=== PATIENT | male | born 1960 | race Caucasian/White ===

== ENCOUNTER 2018-03-28 18:10 | Inpatient (IN) ==
[2018-03-28 21:16] LABS: Baso # (Auto) 0.1 th/mm3 (0.0-0.2); Baso % (Auto) 1.4 % (0.0-2.0); Eos # (Auto) 0.1 th/mm3 (0.0-0.4); Hematocrit 42.8 % (39.0-51.0); Hemoglobin 14.4 gm/dL (13.0-17.0); Lymph # (Auto) 1.9 th/mm3 (1.0-4.8); Lymph % (Auto) 29.9 % (9.0-44.0); Mean Corpuscular HGB Conc 33.7 % (32.0-36.0); Mean Corpuscular Hemoglobin 33.5 pg (27.0-34.0); Mean Corpuscular Volume 99.4 fL (80.0-100.0); Mean Platelet Volume 11.8 fL (7.0-11.0); Mono # (Auto) 0.8 th/mm3 (0.0-0.9); Neut # (Auto) 3.3 th/mm3 (1.8-7.7); Neut % (Auto) 53.7 % (16.0-70.0); Platelet Count 91 th/mm3 (150-450); Red Blood Count 4.31 mil/mm3 (4.50-5.90); Red Cell Distribution Width 16.8 % (11.6-17.2); White Blood Count 6.2 th/mm3 (4.0-11.0)
[2018-03-28 21:29] LABS: Alanine Aminotransferase 51 U/L (12-78)
[2018-03-28 21:39] LABS: Alkaline Phosphatase 150 U/L (45-117); Total Protein 8.3 g/dL (6.4-8.2)
[2018-03-28 21:42] LABS: Albumin 3.5 g/dL (3.4-5.0); Anion Gap 12 meq/L (5-15); Aspartate Aminotransferase 80 U/L (15-37); Blood Urea Nitrogen 25 mg/dL (7-18); Calcium 8.5 mg/dL (8.5-10.1); Carbon Dioxide 18.5 meq/L (21.0-32.0); Chloride 107 meq/L (98-107); Glomerular Filtration Rate 41 mL/min (>89); Glucose,Random 103 mg/dL (74-106); Sodium 137 meq/L (136-145)
[2018-03-28 21:43] LABS: Potassium 4.3 meq/L (3.5-5.1)
--- NOTE | 2018-03-28 21:45 | ED ---
HPI General Chief Complaint: Psychiatric Symptoms Stated Complaint: Psych Eval Time Seen by Provider: 03/29/18 12:15 Source: patient, police and other (ortiz act report) Mode of arrival: other (police) History of Present Illness HPI Narrative: Patient is a 57-year-old male presenting to the emergency department under Ortiz act for psychiatric evaluation. Per the Ortiz act report patient has a history of bipolar disorder and schizophrenia. He has not been eating or sleeping for the last 4 days. He has been allegedly hallucinating and seeing people in his home. Patient admitted to these hallucinations. He has no physical complaints at this time. MD complaint: other Onset (ago): unknown Duration: constant History of same: Yes Relieving factors: none Exacerbating factors: none Associated psychiatric symptoms: auditory hallucinations, visual hallucinations and delusions Associated symptoms: denies other symptoms Treatments prior to arrival: none Related Data Home Medications Medication Instructions Recorded Confirmed metoprolol succinate 100 mg PO DAILY 03/28/18 03/28/18 metoprolol tartrate [Lopressor] 100 mg PO BID 03/28/18 03/28/18 aripiprazole 10 mg PO DAILY 03/29/18 03/29/18 hydroxyzine pamoate 50 mg PO HS 03/29/18 03/29/18 losartan 100 mg PO DAILY 03/29/18 03/29/18 metoprolol tartrate 50 mg PO DAILY 03/29/18 03/29/18 Allergies Allergy/AdvReac Type Severity Reaction Status Date / Time No Known Allergies Allergy Unverified 03/28/18 19:10 Review of Systems ROS: all other systems reviewed are negative [facility] Medical History Medical History Alcohol abuse (Acute) Bipolar disorder (Acute) Hypertension (Acute) Schizophrenia (Acute) Splenomegaly, congestive, chronic (Acute) Steatohepatitis, alcoholic (Acute) Thrombocytopenia (Acute) Umbilical hernia (Acute) Surgical History Surgical History History of umbilical hernia repair (Acute) Family History Family History Other Heart disease Hypertension Social History Social History Substance History: Active Abuse Second Hand Smoke Exposure: No Smoking Status: Former smoker Tobacco Type: Cigarettes How Often Do You Have a Drink Containing Alcohol: Unable to Obtain (patient is vague with the details of his alcohol consumption) Recent Travel in [facility] within the Last 8 Weeks: No Recent Out of Country Travel within the Last 8 Weeks: No Immunization History Tetanus Immunization: Unsure Hx Influenza Vaccine This Season: No Exam Narrative Exam Narrative: GENERAL: Well-developed, well-nourished, well-kept male. Presenting in no acute distress. SKIN: Focused skin assessment warm/dry. HEAD: Atraumatic. Normocephalic. EYES: Pupils equal and round. No scleral icterus. No injection or drainage. ENT: No nasal bleeding or discharge. Mucous membranes pink and moist. NECK: Trachea midline. No JVD. CARDIOVASCULAR: Regular rate and rhythm. No murmur appreciated. RESPIRATORY: No accessory muscle use. Clear to auscultation. Breath sounds equal bilaterally. GASTROINTESTINAL: Abdomen soft, non-tender, nondistended. Hepatic and splenic margins not palpable. MUSCULOSKELETAL: No obvious deformities. No clubbing. No cyanosis. No edema. NEUROLOGICAL: Awake and alert. No obvious cranial nerve deficits. Motor grossly within normal limits. Normal speech. PSYCHIATRIC: Appropriate mood and affect; insight and judgment impaired. Visual and auditory hallucinations. Course Initial Documented Vital Signs Temperature 98.6 F 03/28/18 18:21 Pulse Rate 92 H 03/28/18 18:21 Respiratory Rate 20 03/28/18 18:21 Blood Pressure 119/63 03/28/18 18:21 Pulse Oximetry 97 03/28/18 18:21 Last Documented Vital Signs Temperature 98.4 F 04/02/18 06:10 Pulse Rate 98 H 04/02/18 06:10 Respiratory Rate 18 04/02/18 06:10 Blood Pressure 121/70 04/02/18 06:10 Pulse Oximetry 97 04/02/18 06:10 Medical Decision Making RAY Attestation RAY supervised visit: Yes Attestation: I, Dr. Cox, have reviewed the advance practice practitioner's documentation and am in agreement, met with the patient face to face, made the diagnosis, and the medical decision making was done by me. *My assessment and Findings: Schizophrenia vs. bipolar disorder 57yo M was brought in under Ortiz Act for psychiatric evaluation. Labs reviewed , no leukocytosis. +Toxic granulation. H/H normal. Thrombocytopenic at 91, 000. CO2 low at 18.5. BUN/creatinine elevated at 25/1.73. Bilirubin is elevated at 3.8. AST elevated at 80. Alk phos elevated at 150. Pt said he had history of elevated liver enzymes and use to drink alcohol. Said his platelet count was low. Pt is very well appearing. He has no complaints and no abdominal tenderness on exam. I discussed these lab abnormalities with GI cooler conveyor loader Dr. Sexton and he said that this could all be related to alcohol. Recommends repeat blood work tomorrow and if there is concern, can consult GI. Said without any symptoms, abnormal labs in itself is not enough for medical admission. Pt will be follow up but can be done as outpatient. Will repeat blood work tomorrow and pt is currently clear for psych evaluation. MDM Narrative Medical decision making narrative: Patient is well-appearing 57-year-old male presenting under Ortiz act for psychiatric evaluation. Patient's vital signs are stable. Mental health screening discussed with the patient. Psychiatric screen ordered. We will repeat CBC and chemistry in the morning due to toxic granulocytes in the original CBC. Plan of care was discussed with my attending physician. Report was given oncoming physician's judicial assistant, Natalie Medical Screen Exam Complete: Yes Emergency Medical Condition: Yes Medical Records Medical records reviewed: Yes I reviewed the patient's medical records. Lab Data Result diagrams: 04/01/18 07:16 04/01/18 07:16 Lab Results 03/28/18 03/28/18 03/29/18 Range/Units 18:23 18:23 07:14 WBC 6.2 (4.0-11.0) th/mm3 RBC 4.31 L (4.50-5.90) mil/mm3 Hgb 14.4 (13.0-17.0) gm/dL Hct 42.8 (39.0-51.0) % MCV 99.4 (80.0-100.0) fL MCH 33.5 (27.0-34.0) pg MCHC 33.7 (32.0-36.0) % RDW 16.8 (11.6-17.2) % Plt Count 91 L (150-450) th/mm3 MPV 11.8 H (7.0-11.0) fL Prelim Diff (Auto) Slide review pending Neut % (Auto) 53.7 (16.0-70.0) % Lymph % (Auto) 29.9 (9.0-44.0) % [place] % (Auto) 13.0 H (0.0-8.0) % Eos % (Auto) 2.0 (0.0-4.0) % Baso % (Auto) 1.4 (0.0-2.0) % Neut # (Auto) 3.3 (1.8-7.7) th/mm3 Lymph # (Auto) 1.9 (1.0-4.8) th/mm3 [place] # (Auto) 0.8 (0.0-0.9) th/mm3 Eos # (Auto) 0.1 (0.0-0.4) th/mm3 Baso # (Auto) 0.1 (0.0-0.2) th/mm3 WBC Differential . Diff Scan Auto diff confirmed Differential Comment . Toxic Granulation 2+ H (None) Platelet Estimate Low L (Normal) Platelet Morphology Normal (Normal) Spherocytes Occ H (None) Retic Count (0.4-3.0) % Absolute Retic (20.0-150.0) mil/L Haptoglobin (30-200) mg/dL PT (9.8-11.6) sec INR Ratio Sodium 137 (136-145) meq/L Potassium 4.3 (3.5-5.1) meq/L Chloride 107 (98-107) meq/L Carbon Dioxide 18.5 L (21.0-32.0) meq/L Anion Gap 12 (5-15) meq/L BUN 25 H (7-18) mg/dL Creatinine 1.73 H (0.60-1.30) mg/dL Estimated GFR 41 L (>89) mL/min Random Glucose 103 (74-106) mg/dL Hemoglobin A1c (4.3-6.0) % Calcium 8.5 (8.5-10.1) mg/dL Iron (65-175) mcg/dL TIBC (250-450) mcg/dL % Saturation (20-50) % Ferritin (26-388) ng/mL Total Bilirubin 3.9 H (0.2-1.0) mg/dL AST 80 H (15-37) U/L ALT 51 (12-78) U/L Alkaline Phosphatase 150 H (45-117) U/L Ammonia (11-32) mcmol/L Lactate Dehydrogenase (87-241) U/L Total Protein 8.3 H (6.4-8.2) g/dL Albumin 3.5 (3.4-5.0) g/dL Triglycerides (42-150) mg/dL Cholesterol (120-200) mg/dL LDL Cholesterol, Calc (0-99) mg/dL HDL Cholesterol (40.0-60.0) mg/dL Cholesterol/HDL Ratio Ratio Lipase (73-393) U/L Tumor Marker AFP (0.5-8.0) ng/mL Vitamin B12 (193-986) pg/mL TSH 1.770 (0.358-3.740) uIU/mL Urine Color (Yellw/Straw) Urine Clarity (Clear) Urine pH (5.0-8.5) Ur Specific [place] (1.002-1.035) Urine Protein (Neg-Trace) mg/dL Urine Glucose (UA) (Negative) mg/dL Urine Ketones (Negative) mg/dL Urine Occult Blood (Negative) Urine Nitrate (Negative) Urine Bilirubin (Negative) Urine Urobilinogen (Less than 2) mg/dL Ur Leukocyte Esterase (Negative) Urine WBC (0-5) /hpf Hyaline Casts (0-3) /lpf Urine Mucus (Occasional) /lpf Micro UA Comment Ur Microscopic Review Urine Culture Comments Urine Opiates Screen Neg (Neg) Acetaminophen (10.0-30.0) mcg/mL Ur Barbiturates Screen Neg (Neg) Ur Amphetamines Screen Neg (Neg) U Benzodiazepines Scrn Neg (Neg) Urine Cocaine Screen Neg (Neg) U Cannabinoids Screen Neg (Neg) Serum Alcohol Less than 3 (0-5) mg/dL LANA Screen (Neg) Hepatitis A IgM Ab (Nonreactive) Hep Bs Antigen (Nonreactive) Hep B Core IgM Ab (Nonreactive) Hep C IgG Ab (Nonreactive) 03/29/18 03/30/18 03/30/18 Range/Units 07:14 08:01 08:01 WBC 3.4 L (4.0-11.0) th/mm3 RBC 3.70 L (4.50-5.90) mil/mm3 Hgb 12.5 L (13.0-17.0) gm/dL Hct 36.7 L (39.0-51.0) % MCV 99.0 (80.0-100.0) fL MCH 33.8 (27.0-34.0) pg MCHC 34.1 (32.0-36.0) % RDW 16.3 (11.6-17.2) % Plt Count 49 L D (150-450) th/mm3 MPV 10.9 (7.0-11.0) fL Prelim Diff (Auto) Slide review pending Neut % (Auto) 46.5 (16.0-70.0) % Lymph % (Auto) 36.9 (9.0-44.0) % [place] % (Auto) 12.1 H (0.0-8.0) % Eos % (Auto) 3.5 (0.0-4.0) % Baso % (Auto) 1.0 (0.0-2.0) % Neut # (Auto) 1.6 L (1.8-7.7) th/mm3 Lymph # (Auto) 1.3 (1.0-4.8) th/mm3 [place] # (Auto) 0.4 (0.0-0.9) th/mm3 Eos # (Auto) 0.1 (0.0-0.4) th/mm3 Baso # (Auto) 0.0 (0.0-0.2) th/mm3 WBC Differential . Diff Scan Auto diff confirmed Differential Comment . Toxic Granulation (None) Platelet Estimate (Normal) Platelet Morphology (Normal) Spherocytes (None) Retic Count (0.4-3.0) % Absolute Retic (20.0-150.0) mil/L Haptoglobin (30-200) mg/dL PT (9.8-11.6) sec INR Ratio Sodium 136 (136-145) meq/L Potassium 4.0 (3.5-5.1) meq/L Chloride 102 (98-107) meq/L Carbon Dioxide 25.1 (21.0-32.0) meq/L Anion Gap 9 (5-15) meq/L BUN 17 (7-18) mg/dL Creatinine 0.97 (0.60-1.30) mg/dL Estimated GFR 80 L (>89) mL/min Random Glucose 152 H (74-106) mg/dL Hemoglobin A1c (4.3-6.0) % Calcium 7.9 L (8.5-10.1) mg/dL Iron (65-175) mcg/dL TIBC (250-450) mcg/dL % Saturation (20-50) % Ferritin (26-388) ng/mL Total Bilirubin 2.5 H (0.2-1.0) mg/dL AST 64 H (15-37) U/L ALT 44 (12-78) U/L Alkaline Phosphatase 230 H (45-117) U/L Ammonia (11-32) mcmol/L Lactate Dehydrogenase (87-241) U/L Total Protein 6.7 D (6.4-8.2) g/dL Albumin 2.8 L D (3.4-5.0) g/dL Triglycerides 183 H (42-150) mg/dL Cholesterol 173 (120-200) mg/dL LDL Cholesterol, Calc 89 (0-99) mg/dL HDL Cholesterol 47.7 (40.0-60.0) mg/dL Cholesterol/HDL Ratio 3.62 Ratio Lipase (73-393) U/L Tumor Marker AFP (0.5-8.0) ng/mL Vitamin B12 (193-986) pg/mL TSH (0.358-3.740) uIU/mL Urine Color [place] (Yellw/Straw) Urine Clarity Hazy H (Clear) Urine pH 5.0 (5.0-8.5) Ur Specific [place] 1.024 (1.002-1.035) Urine Protein Negative (Neg-Trace) mg/dL Urine Glucose (UA) Negative (Negative) mg/dL Urine Ketones Trace (Negative) mg/dL Urine Occult Blood Negative (Negative) Urine Nitrate Negative (Negative) Urine Bilirubin Negative (Negative) Urine Urobilinogen 2.0 H (Less than 2) mg/dL Ur Leukocyte Esterase Negative (Negative) Urine WBC 2 (0-5) /hpf Hyaline Casts 26 (0-3) /lpf Urine Mucus Few H (Occasional) /lpf Micro UA Comment Culture not ind Ur Microscopic Review Not Reportable Urine Culture Comments Culture not ind Urine Opiates Screen (Neg) Acetaminophen (10.0-30.0) mcg/mL Ur Barbiturates Screen (Neg) Ur Amphetamines Screen (Neg) U Benzodiazepines Scrn (Neg) Urine Cocaine Screen (Neg) U Cannabinoids Screen (Neg) Serum Alcohol (0-5) mg/dL LANA Screen (Neg) Hepatitis A IgM Ab (Nonreactive) Hep Bs Antigen (Nonreactive) Hep B Core IgM Ab (Nonreactive) Hep C IgG Ab (Nonreactive) 03/30/18 03/31/18 03/31/18 Range/Units 08:01 06:57 06:57 WBC 3.0 L (4.0-11.0) th/mm3 RBC 3.54 L (4.50-5.90) mil/mm3 Hgb 11.9 L (13.0-17.0) gm/dL Hct 34.5 L (39.0-51.0) % MCV 97.3 (80.0-100.0) fL MCH 33.5 (27.0-34.0) pg MCHC 34.4 (32.0-36.0) % RDW 16.2 (11.6-17.2) % Plt Count 38 L (150-450) th/mm3 MPV 10.8 (7.0-11.0) fL Prelim Diff (Auto) Neut % (Auto) (16.0-70.0) % Lymph % (Auto) (9.0-44.0) % [place] % (Auto) (0.0-8.0) % Eos % (Auto) (0.0-4.0) % Baso % (Auto) (0.0-2.0) % Neut # (Auto) (1.8-7.7) th/mm3 Lymph # (Auto) (1.0-4.8) th/mm3 [place] # (Auto) (0.0-0.9) th/mm3 Eos # (Auto) (0.0-0.4) th/mm3 Baso # (Auto) (0.0-0.2) th/mm3 WBC Differential Diff Scan Differential Comment Toxic Granulation (None) Platelet Estimate (Normal) Platelet Morphology (Normal) Spherocytes (None) Retic Count (0.4-3.0) % Absolute Retic (20.0-150.0) mil/L Haptoglobin (30-200) mg/dL PT (9.8-11.6) sec INR Ratio Sodium 138 (136-145) meq/L Potassium 3.8 (3.5-5.1) meq/L Chloride 104 (98-107) meq/L Carbon Dioxide 24.5 (21.0-32.0) meq/L Anion Gap 10 (5-15) meq/L BUN 11 (7-18) mg/dL Creatinine 0.68 (0.60-1.30) mg/dL Estimated GFR Greater than 89 (>89) mL/min Random Glucose 111 H (74-106) mg/dL Hemoglobin A1c 5.2 (4.3-6.0) % Calcium 8.3 L (8.5-10.1) mg/dL Iron (65-175) mcg/dL TIBC (250-450) mcg/dL % Saturation (20-50) % Ferritin (26-388) ng/mL Total Bilirubin 2.5 H (0.2-1.0) mg/dL AST 67 H (15-37) U/L ALT 45 (12-78) U/L Alkaline Phosphatase 231 H (45-117) U/L Ammonia (11-32) mcmol/L Lactate Dehydrogenase (87-241) U/L Total Protein 6.5 (6.4-8.2) g/dL Albumin 2.7 L (3.4-5.0) g/dL Triglycerides (42-150) mg/dL Cholesterol (120-200) mg/dL LDL Cholesterol, Calc (0-99) mg/dL HDL Cholesterol (40.0-60.0) mg/dL Cholesterol/HDL Ratio Ratio Lipase (73-393) U/L Tumor Marker AFP (0.5-8.0) ng/mL Vitamin B12 (193-986) pg/mL TSH (0.358-3.740) uIU/mL Urine Color (Yellw/Straw) Urine Clarity (Clear) Urine pH (5.0-8.5) Ur Specific [place] (1.002-1.035) Urine Protein (Neg-Trace) mg/dL Urine Glucose (UA) (Negative) mg/dL Urine Ketones (Negative) mg/dL Urine Occult Blood (Negative) Urine Nitrate (Negative) Urine Bilirubin (Negative) Urine Urobilinogen (Less than 2) mg/dL Ur Leukocyte Esterase (Negative) Urine WBC (0-5) /hpf Hyaline Casts (0-3) /lpf Urine Mucus (Occasional) /lpf Micro UA Comment Ur Microscopic Review Urine Culture Comments Urine Opiates Screen (Neg) Acetaminophen (10.0-30.0) mcg/mL Ur Barbiturates Screen (Neg) Ur Amphetamines Screen (Neg) U Benzodiazepines Scrn (Neg) Urine Cocaine Screen (Neg) U Cannabinoids Screen (Neg) Serum Alcohol (0-5) mg/dL LANA Screen (Neg) Hepatitis A IgM Ab (Nonreactive) Hep Bs Antigen (Nonreactive) Hep B Core IgM Ab (Nonreactive) Hep C IgG Ab (Nonreactive) 03/31/18 03/31/18 03/31/18 Range/Units 06:57 10:20 10:20 WBC (4.0-11.0) th/mm3 RBC (4.50-5.90) mil/mm3 Hgb (13.0-17.0) gm/dL Hct (39.0-51.0) % MCV (80.0-100.0) fL MCH (27.0-34.0) pg MCHC (32.0-36.0) % RDW (11.6-17.2) % Plt Count (150-450) th/mm3 MPV (7.0-11.0) fL Prelim Diff (Auto) Neut % (Auto) (16.0-70.0) % Lymph % (Auto) (9.0-44.0) % [place] % (Auto) (0.0-8.0) % Eos % (Auto) (0.0-4.0) % Baso % (Auto) (0.0-2.0) % Neut # (Auto) (1.8-7.7) th/mm3 Lymph # (Auto) (1.0-4.8) th/mm3 [place] # (Auto) (0.0-0.9) th/mm3 Eos # (Auto) (0.0-0.4) th/mm3 Baso # (Auto) (0.0-0.2) th/mm3 WBC Differential Diff Scan Differential Comment Toxic Granulation (None) Platelet Estimate (Normal) Platelet Morphology (Normal) Spherocytes (None) Retic Count 0.6 (0.4-3.0) % Absolute Retic 23.2 (20.0-150.0) mil/L Haptoglobin 16 L (30-200) mg/dL PT 13.8 H (9.8-11.6) sec INR 1.4 Ratio Sodium (136-145) meq/L Potassium (3.5-5.1) meq/L Chloride (98-107) meq/L Carbon Dioxide (21.0-32.0) meq/L Anion Gap (5-15) meq/L BUN (7-18) mg/dL Creatinine (0.60-1.30) mg/dL Estimated GFR (>89) mL/min Random Glucose (74-106) mg/dL Hemoglobin A1c (4.3-6.0) % Calcium (8.5-10.1) mg/dL Iron (65-175) mcg/dL TIBC (250-450) mcg/dL % Saturation (20-50) % Ferritin (26-388) ng/mL Total Bilirubin (0.2-1.0) mg/dL AST (15-37) U/L ALT (12-78) U/L Alkaline Phosphatase (45-117) U/L Ammonia (11-32) mcmol/L Lactate Dehydrogenase 166 (87-241) U/L Total Protein (6.4-8.2) g/dL Albumin (3.4-5.0) g/dL Triglycerides (42-150) mg/dL Cholesterol (120-200) mg/dL LDL Cholesterol, Calc (0-99) mg/dL HDL Cholesterol (40.0-60.0) mg/dL Cholesterol/HDL Ratio Ratio Lipase (73-393) U/L Tumor Marker AFP (0.5-8.0) ng/mL Vitamin B12 873 (193-986) pg/mL TSH (0.358-3.740) uIU/mL Urine Color (Yellw/Straw) Urine Clarity (Clear) Urine pH (5.0-8.5) Ur Specific [place] (1.002-1.035) Urine Protein (Neg-Trace) mg/dL Urine Glucose (UA) (Negative) mg/dL Urine Ketones (Negative) mg/dL Urine Occult Blood (Negative) Urine Nitrate (Negative) Urine Bilirubin (Negative) Urine Urobilinogen (Less than 2) mg/dL Ur Leukocyte Esterase (Negative) Urine WBC (0-5) /hpf Hyaline Casts (0-3) /lpf Urine Mucus (Occasional) /lpf Micro UA Comment Ur Microscopic Review Urine Culture Comments Urine Opiates Screen (Neg) Acetaminophen (10.0-30.0) mcg/mL Ur Barbiturates Screen (Neg) Ur Amphetamines Screen (Neg) U Benzodiazepines Scrn (Neg) Urine Cocaine Screen (Neg) U Cannabinoids Screen (Neg) Serum Alcohol (0-5) mg/dL LANA Screen (Neg) Hepatitis A IgM Ab (Nonreactive) Hep Bs Antigen (Nonreactive) Hep B Core IgM Ab (Nonreactive) Hep C IgG Ab (Nonreactive) 03/31/18 03/31/18 03/31/18 Range/Units 10:20 10:20 14:38 WBC (4.0-11.0) th/mm3 RBC (4.50-5.90) mil/mm3 Hgb (13.0-17.0) gm/dL Hct (39.0-51.0) % MCV (80.0-100.0) fL MCH (27.0-34.0) pg MCHC (32.0-36.0) % RDW (11.6-17.2) % Plt Count (150-450) th/mm3 MPV (7.0-11.0) fL Prelim Diff (Auto) Neut % (Auto) (16.0-70.0) % Lymph % (Auto) (9.0-44.0) % [place] % (Auto) (0.0-8.0) % Eos % (Auto) (0.0-4.0) % Baso % (Auto) (0.0-2.0) % Neut # (Auto) (1.8-7.7) th/mm3 Lymph # (Auto) (1.0-4.8) th/mm3 [place] # (Auto) (0.0-0.9) th/mm3 Eos # (Auto) (0.0-0.4) th/mm3 Baso # (Auto) (0.0-0.2) th/mm3 WBC Differential Diff Scan Differential Comment Toxic Granulation (None) Platelet Estimate (Normal) Platelet Morphology (Normal) Spherocytes (None) Retic Count (0.4-3.0) % Absolute Retic (20.0-150.0) mil/L Haptoglobin (30-200) mg/dL PT (9.8-11.6) sec INR Ratio Sodium (136-145) meq/L Potassium (3.5-5.1) meq/L Chloride (98-107) meq/L Carbon Dioxide (21.0-32.0) meq/L Anion Gap (5-15) meq/L BUN (7-18) mg/dL Creatinine (0.60-1.30) mg/dL Estimated GFR (>89) mL/min Random Glucose (74-106) mg/dL Hemoglobin A1c (4.3-6.0) % Calcium (8.5-10.1) mg/dL Iron 166 (65-175) mcg/dL TIBC 178 L (250-450) mcg/dL % Saturation 93.4 H (20-50) % Ferritin 468 H (26-388) ng/mL Total Bilirubin (0.2-1.0) mg/dL AST (15-37) U/L ALT (12-78) U/L Alkaline Phosphatase (45-117) U/L Ammonia 32 (11-32) mcmol/L Lactate Dehydrogenase (87-241) U/L Total Protein (6.4-8.2) g/dL Albumin (3.4-5.0) g/dL Triglycerides (42-150) mg/dL Cholesterol (120-200) mg/dL LDL Cholesterol, Calc (0-99) mg/dL HDL Cholesterol (40.0-60.0) mg/dL Cholesterol/HDL Ratio Ratio Lipase 189 (73-393) U/L Tumor Marker AFP (0.5-8.0) ng/mL Vitamin B12 (193-986) pg/mL TSH (0.358-3.740) uIU/mL Urine Color (Yellw/Straw) Urine Clarity (Clear) Urine pH (5.0-8.5) Ur Specific [place] (1.002-1.035) Urine Protein (Neg-Trace) mg/dL Urine Glucose (UA) (Negative) mg/dL Urine Ketones (Negative) mg/dL Urine Occult Blood (Negative) Urine Nitrate (Negative) Urine Bilirubin (Negative) Urine Urobilinogen (Less than 2) mg/dL Ur Leukocyte Esterase (Negative) Urine WBC (0-5) /hpf Hyaline Casts (0-3) /lpf Urine Mucus (Occasional) /lpf Micro UA Comment Ur Microscopic Review Urine Culture Comments Urine Opiates Screen (Neg) Acetaminophen (10.0-30.0) mcg/mL Ur Barbiturates Screen (Neg) Ur Amphetamines Screen (Neg) U Benzodiazepines Scrn (Neg) Urine Cocaine Screen (Neg) U Cannabinoids Screen (Neg) Serum Alcohol (0-5) mg/dL LANA Screen (Neg) Hepatitis A IgM Ab Nonreactive (Nonreactive) Hep Bs Antigen Nonreactive (Nonreactive) Hep B Core IgM Ab Nonreactive (Nonreactive) Hep C IgG Ab Nonreactive (Nonreactive) 03/31/18 03/31/18 04/01/18 Range/Units 16:08 16:08 07:16 WBC 3.2 L (4.0-11.0) th/mm3 RBC 3.57 L (4.50-5.90) mil/mm3 Hgb 11.9 L (13.0-17.0) gm/dL Hct 34.7 L (39.0-51.0) % MCV 97.1 (80.0-100.0) fL MCH 33.4 (27.0-34.0) pg MCHC 34.4 (32.0-36.0) % RDW 16.1 (11.6-17.2) % Plt Count 41 L (150-450) th/mm3 MPV 10.5 (7.0-11.0) fL Prelim Diff (Auto) Slide review pending Neut % (Auto) 48.9 (16.0-70.0) % Lymph % (Auto) 35.0 (9.0-44.0) % [place] % (Auto) 11.8 H (0.0-8.0) % Eos % (Auto) 3.0 (0.0-4.0) % Baso % (Auto) 1.3 (0.0-2.0) % Neut # (Auto) 1.6 L (1.8-7.7) th/mm3 Lymph # (Auto) 1.1 (1.0-4.8) th/mm3 [place] # (Auto) 0.4 (0.0-0.9) th/mm3 Eos # (Auto) 0.1 (0.0-0.4) th/mm3 Baso # (Auto) 0.0 (0.0-0.2) th/mm3 WBC Differential . Diff Scan Auto diff confirmed Differential Comment . Toxic Granulation (None) Platelet Estimate Low L (Normal) Platelet Morphology Normal (Normal) Spherocytes (None) Retic Count (0.4-3.0) % Absolute Retic (20.0-150.0) mil/L Haptoglobin (30-200) mg/dL PT (9.8-11.6) sec INR Ratio Sodium (136-145) meq/L Potassium (3.5-5.1) meq/L Chloride (98-107) meq/L Carbon Dioxide (21.0-32.0) meq/L Anion Gap (5-15) meq/L BUN (7-18) mg/dL Creatinine (0.60-1.30) mg/dL Estimated GFR (>89) mL/min Random Glucose (74-106) mg/dL Hemoglobin A1c (4.3-6.0) % Calcium (8.5-10.1) mg/dL Iron (65-175) mcg/dL TIBC (250-450) mcg/dL % Saturation (20-50) % Ferritin (26-388) ng/mL Total Bilirubin (0.2-1.0) mg/dL AST (15-37) U/L ALT (12-78) U/L Alkaline Phosphatase (45-117) U/L Ammonia (11-32) mcmol/L Lactate Dehydrogenase (87-241) U/L Total Protein (6.4-8.2) g/dL Albumin (3.4-5.0) g/dL Triglycerides (42-150) mg/dL Cholesterol (120-200) mg/dL LDL Cholesterol, Calc (0-99) mg/dL HDL Cholesterol (40.0-60.0) mg/dL Cholesterol/HDL Ratio Ratio Lipase (73-393) U/L Tumor Marker AFP 5.3 (0.5-8.0) ng/mL Vitamin B12 (193-986) pg/mL TSH (0.358-3.740) uIU/mL Urine Color (Yellw/Straw) Urine Clarity (Clear) Urine pH (5.0-8.5) Ur Specific [place] (1.002-1.035) Urine Protein (Neg-Trace) mg/dL Urine Glucose (UA) (Negative) mg/dL Urine Ketones (Negative) mg/dL Urine Occult Blood (Negative) Urine Nitrate (Negative) Urine Bilirubin (Negative) Urine Urobilinogen (Less than 2) mg/dL Ur Leukocyte Esterase (Negative) Urine WBC (0-5) /hpf Hyaline Casts (0-3) /lpf Urine Mucus (Occasional) /lpf Micro UA Comment Ur Microscopic Review Urine Culture Comments Urine Opiates Screen (Neg) Acetaminophen Less than 2.0 L (10.0-30.0) mcg/mL Ur Barbiturates Screen (Neg) Ur Amphetamines Screen (Neg) U Benzodiazepines Scrn (Neg) Urine Cocaine Screen (Neg) U Cannabinoids Screen (Neg) Serum Alcohol (0-5) mg/dL LANA Screen Neg (Neg) Hepatitis A IgM Ab (Nonreactive) Hep Bs Antigen (Nonreactive) Hep B Core IgM Ab (Nonreactive) Hep C IgG Ab (Nonreactive) 04/01/18 04/01/18 Range/Units 07:16 07:16 WBC (4.0-11.0) th/mm3 RBC (4.50-5.90) mil/mm3 Hgb (13.0-17.0) gm/dL Hct (39.0-51.0) % MCV (80.0-100.0) fL MCH (27.0-34.0) pg MCHC (32.0-36.0) % RDW (11.6-17.2) % Plt Count (150-450) th/mm3 MPV (7.0-11.0) fL Prelim Diff (Auto) Neut % (Auto) (16.0-70.0) % Lymph % (Auto) (9.0-44.0) % [place] % (Auto) (0.0-8.0) % Eos % (Auto) (0.0-4.0) % Baso % (Auto) (0.0-2.0) % Neut # (Auto) (1.8-7.7) th/mm3 Lymph # (Auto) (1.0-4.8) th/mm3 [place] # (Auto) (0.0-0.9) th/mm3 Eos # (Auto) (0.0-0.4) th/mm3 Baso # (Auto) (0.0-0.2) th/mm3 WBC Differential Diff Scan Differential Comment Toxic Granulation (None) Platelet Estimate (Normal) Platelet Morphology (Normal) Spherocytes (None) Retic Count (0.4-3.0) % Absolute Retic (20.0-150.0) mil/L Haptoglobin (30-200) mg/dL PT 13.4 H (9.8-11.6) sec INR 1.3 Ratio Sodium 139 (136-145) meq/L Potassium 3.9 (3.5-5.1) meq/L Chloride 106 (98-107) meq/L Carbon Dioxide 25.0 (21.0-32.0) meq/L Anion Gap 8 (5-15) meq/L BUN 13 (7-18) mg/dL Creatinine 0.68 (0.60-1.30) mg/dL Estimated GFR Greater than 89 (>89) mL/min Random Glucose 102 (74-106) mg/dL Hemoglobin A1c (4.3-6.0) % Calcium 8.4 L (8.5-10.1) mg/dL Iron (65-175) mcg/dL TIBC (250-450) mcg/dL % Saturation (20-50) % Ferritin (26-388) ng/mL Total Bilirubin 2.0 H (0.2-1.0) mg/dL AST 67 H (15-37) U/L ALT 51 (12-78) U/L Alkaline Phosphatase 258 H (45-117) U/L Ammonia (11-32) mcmol/L Lactate Dehydrogenase (87-241) U/L Total Protein 6.7 (6.4-8.2) g/dL Albumin 2.7 L (3.4-5.0) g/dL Triglycerides (42-150) mg/dL Cholesterol (120-200) mg/dL LDL Cholesterol, Calc (0-99) mg/dL HDL Cholesterol (40.0-60.0) mg/dL Cholesterol/HDL Ratio Ratio Lipase (73-393) U/L Tumor Marker AFP (0.5-8.0) ng/mL Vitamin B12 (193-986) pg/mL TSH (0.358-3.740) uIU/mL Urine Color (Yellw/Straw) Urine Clarity (Clear) Urine pH (5.0-8.5) Ur Specific [place] (1.002-1.035) Urine Protein (Neg-Trace) mg/dL Urine Glucose (UA) (Negative) mg/dL Urine Ketones (Negative) mg/dL Urine Occult Blood (Negative) Urine Nitrate (Negative) Urine Bilirubin (Negative) Urine Urobilinogen (Less than 2) mg/dL Ur Leukocyte Esterase (Negative) Urine WBC (0-5) /hpf Hyaline Casts (0-3) /lpf Urine Mucus (Occasional) /lpf Micro UA Comment Ur Microscopic Review Urine Culture Comments Urine Opiates Screen (Neg) Acetaminophen (10.0-30.0) mcg/mL Ur Barbiturates Screen (Neg) Ur Amphetamines Screen (Neg) U Benzodiazepines Scrn (Neg) Urine Cocaine Screen (Neg) U Cannabinoids Screen (Neg) Serum Alcohol (0-5) mg/dL LANA Screen (Neg) Hepatitis A IgM Ab (Nonreactive) Hep Bs Antigen (Nonreactive) Hep B Core IgM Ab (Nonreactive) Hep C IgG Ab (Nonreactive) Imaging Data Radiologist's impression: Liver Ultrasound 03/31/18 00:00 CONCLUSION: 1. There continues to be some increased echogenicity throughout the liver characteristic for fatty infiltration. 2. There continues to be evidence of splenomegaly. 3. No new or significant changes compared back to 2016. Discharge Plan Discharge Disposition Patient Disposition: 30 Still Patient Discharge Condition Condition: Stable Discharge Details Diagnosis: Medical clearance for psychiatric admission Physicians Team ED Provider: [facility] Midlevel Provider: Sole Mulligan Primary Care Provider: UNKNOWN, Attending Provider: [facility] Other Providers: Ronni Villanueva ; Leandro Hill ; Adarsh Cline ; Tyrel Lawler Status ED Status: Left Department Discharge Information Discharge Date/Time: 03/29/18 14:27
[2018-03-28 21:46] LABS: Platelet Morphology Normal (Normal); Toxic Granulation 2+
[2018-03-28 21:47] LABS: Spherocytes Occ
[2018-03-29 08:10] LABS: Bilirubin,Urine Negative (Negative); Clarity,Urine Hazy (Clear); Color,Urine Amber (Yellw/Straw); Glucose,Urine (UA) Negative (Negative); Hyaline Casts,Urine 26 /lpf (0-3); Leukocyte Esterase,Urine Negative (Negative); Mucus,Urine Few /lpf (Occasional); Nitrite,Urine Negative (Negative); Specific Gravity,Urine 1.024 (1.002-1.035)
[2018-03-29 08:27] LABS: Amphetamine Screen,Urine Neg (Neg); Barbiturate Screen,Urine Neg (Neg); Cannabinoid Screen,Urine Neg (Neg); Cocaine Screen,Urine Neg (Neg)
[2018-03-29 08:28] LABS: Opiate Screen,Urine Neg (Neg)
--- NOTE | 2018-03-29 12:37 | ED ---
HPI - Psych - General Source: patient, RN notes reviewed, old records reviewed, police, other (ortiz act report) Mode of arrival: ambulatory (police) Limitations: no limitations - History of Present Illness MD complaint: other Onset (ago): day(s) Duration: constant History of same: Yes Relieving factors: none Exacerbating factors: none Context: not taking psychiatric medications Associated psychiatric symptoms: depression Associated symptoms: denies other symptoms Treatments prior to arrival: none - General Chief Complaint: Psychiatric Symptoms Stated Complaint: Psych Eval Time Seen by Provider: 03/29/18 12:15 - History of Present Illness HPI Narrative: History of Present Illness HPI Narrative: Patient is a 57-year-old,single male, living with his mother, unemployed, past hx of ETOH abuse, with history of bipolar disorder, mixed personality disorder including borderline, antisocial and narcissistic presenting to the emergency department under Ortiz act for psychiatric evaluation. Per the Ortiz act report" Patient has a history of bipolar disorder and schizophrenia. He has not been eating or sleeping for the last 4 days. He has been hallucinating and seeing people in his home." Patient admitted to these hallucinations. EMR reviewed. Patient was admitted to out inpatient psychiatric unit on December 2015 also under a BA. Nurses report reviewed. Patient is described as " disorganized, manic". Nurses have received a phone call from the brother who is very concerned for his mother's safety due to the patient's recent violent behavior. It is reported he took a baseball bat and destroyed his room, is not sleeping and is hallucinating. He stopped his psychiatric medications several months ago. The patient is seen. He is presently calm but with irritable edge. Decreased eye contact.His speech is of normal rate and tone. he is suspicious and paranoid of his mother and his family as well as of the police " they tricked me into saying that I was seeing things. My mother is the one that is having hallucinations". He states that he has chronic sleep problems and has not slept for the past 2 days. He is also reporting that he has bought " $4,000.00 worth of jewelry and I am waiting for the money since I returned it because I want to go to [facility]". Patient does admit to feeling depressed due to his current living situation. He denies any hallucinations but patient is observed responding to internal stimuli when this commercial lines underwriter leaves the room. (Anthony Madys) - Related Data Home Medications Medication Instructions Recorded Confirmed metoprolol succinate 100 mg PO DAILY 03/28/18 03/28/18 metoprolol tartrate [Lopressor] 100 mg PO BID 03/28/18 03/28/18 Allergies Allergy/AdvReac Type Severity Reaction Status Date / Time No Known Allergies Allergy Unverified 03/28/18 19:10 PMFSH - History History Provided By: Patient - Medical History Medical History: Medical History (Last Reviewed 03/28/18 @ 21:44 by MARITZA Whitmore) Bipolar disorder Hypertension Schizophrenia - Tobacco History Second Hand Smoke Exposure: No Tobacco Use In Past 30 Days: No Smoking Status: Never smoker Tobacco Type: Cigarettes - Alcohol History How Often Do You Have a Drink Containing Alcohol: Never - Substance Use History Substance History: Active Abuse - Substance Use Type Alcohol Status: Active Route Used: By Mouth Reason for Use: Calm Down, Feels Good - Travel History Recent Travel in the [place] Within the Last 8 Weeks: No Recent Travel Out of the Country Within the Last 8 Weeks: No - Immunization History Tetanus Immunization: Unsure Hx Influenza Vaccine This Season: No Psychiatric History - Psychiatric History Psychiatric Treatment History: History of Psychiatric Treatment, History of Hospitalization in a Psychiatric Facility, History of Community Mental Health Treatment History of Inpatient Treatment: Yes Firearms in Home: No - Psychiatric History Patient with dx of bipolar disorder. At least eight lifetime psychiatric hospitalizations. Last hosp[facility]at [facility] in 2016. Patient receives outpatient care at [facility]. Currently non compliant with psychiatric treatment. Past medications include lithium and Paxil (Ma,Rosemary) - Legal History Past DUI x 4 to 5. (Ma,Rosemary) Mental Status Examination Appearance: Disheveled Consciousness: Alert Orientation: x4 Motor Activity: Normal gait Speech: Hesitant Language: Adequate Fund of Knowledge: Adequate Attention and Concentration: Adequate Memory: Unremarkable Mood: Angry Affect: Irritable Thought Process & Associations: Intact, Goal directed Thought Content: Other (suspicious of family) Hallucination Type: Auditory Delusion Type: Paranoid Suicidal Ideation: No Suicidal Plan: No Suicidal Intention: No Homicidal Ideation: No Homicidal Plan: No Homicidal Intention: No Insight: Poor Judgment: Impulsive Initial Documented Vital Signs Temperature 98.6 F 03/28/18 18:21 Pulse Rate 92 H 08/27/18 18:21 Respiratory Rate 20 03/28/18 18:21 Blood Pressure 119/63 03/28/18 18:21 Pulse Oximetry 97 03/28/18 18:21 Last Documented Vital Signs Temperature 98.6 F 03/28/18 18:28 Pulse Rate 83 03/29/18 05:55 Respiratory Rate 18 03/29/18 05:55 Blood Pressure 113/63 03/29/18 05:55 Pulse Oximetry 98 03/29/18 05:55 MDM - Psych - Diagnosis (1) Bipolar disorder Status: Acute - Lab Data Result diagrams: 03/28/18 18:23 03/28/18 18:23 - MDM Narrative Medical decision making narrative: 57-year-old male with history of bipolar disorder, mixed personality disorder, under a Ortiz act alleging that the patient has not slept in the past 4 days and that he has not eaten in the past 4 days. The report also alleges that he has been experiencing visual hallucinations. The patient admits that he has not been sleeping as well as admitting that he has not stopped taking his psychiatric medication. Information obtained from the family is of concern as they reported that he has been aggressive and agitated and that he allegedly took a bat and destroyed items in his room. The brother who lives in [place] states that he is concerned over the safety of his elderly mom who lives with the patient. The patient presents as guarded and somewhat irritable. He has maintained behavioral control while here in the ED. He denies any hallucinations and believes that the police plotted to get him here and that they lied to him as well. The patient was observed responding actively to internal stimuli. The patient will be admitted to inpatient psychiatric unit for further evaluation, for safety, and for medication adjustments. (Rosemary Ma) - Lab Data Lab Results 03/28/18 03/28/18 03/29/18 Range/Units 18:23 18:23 07:14 WBC 6.2 (4.0-11.0) th/mm3 RBC 4.31 L (4.50-5.90) mil/mm3 Hgb 14.4 (13.0-17.0) gm/dL Hct 42.8 (39.0-51.0) % MCV 99.4 (80.0-100.0) fL MCH 33.5 (27.0-34.0) pg MCHC 33.7 (32.0-36.0) % RDW 16.8 (11.6-17.2) % Plt Count 91 L (150-450) th/mm3 MPV 11.8 H (7.0-11.0) fL Prelim Diff (Auto) Slide review pending Neut % (Auto) 53.7 (16.0-70.0) % Lymph % (Auto) 29.9 (9.0-44.0) % Carter % (Auto) 13.0 H (0.0-8.0) % Eos % (Auto) 2.0 (0.0-4.0) % Baso % (Auto) 1.4 (0.0-2.0) % Neut # (Auto) 3.3 (1.8-7.7) th/mm3 Lymph # (Auto) 1.9 (1.0-4.8) th/mm3 Carter # (Auto) 0.8 (0.0-0.9) th/mm3 Eos # (Auto) 0.1 (0.0-0.4) th/mm3 Baso # (Auto) 0.1 (0.0-0.2) th/mm3 WBC Differential . Diff Scan Auto diff confirmed Differential Comment . Toxic Granulation 2+ H (None) Platelet Estimate Low L (Normal) Platelet Morphology Normal (Normal) Spherocytes Occ H (None) Sodium 137 (136-145) meq/L Potassium 4.3 (3.5-5.1) meq/L Chloride 107 (98-107) meq/L Carbon Dioxide 18.5 L (21.0-32.0) meq/L Anion Gap 12 (5-15) meq/L BUN 25 H (7-18) mg/dL Creatinine 1.73 H (0.60-1.30) mg/dL Estimated GFR 41 L (>89) mL/min Random Glucose 103 (74-106) mg/dL Calcium 8.5 (8.5-10.1) mg/dL Total Bilirubin 3.9 H (0.2-1.0) mg/dL AST 80 H (15-37) U/L ALT 51 (12-78) U/L Alkaline Phosphatase 150 H (45-117) U/L Total Protein 8.3 H (6.4-8.2) g/dL Albumin 3.5 (3.4-5.0) g/dL TSH 1.770 (0.358-3.740) uIU/mL Urine Color (Yellw/Straw) Urine Clarity (Clear) Urine pH (5.0-8.5) Ur Specific [place] (1.002-1.035) Urine Protein (Neg-Trace) mg/dL Urine Glucose (UA) (Negative) mg/dL Urine Ketones (Negative) mg/dL Urine Occult Blood (Negative) Urine Nitrate (Negative) Urine Bilirubin (Negative) Urine Urobilinogen (Less than 2) mg/dL Ur Leukocyte Esterase (Negative) Urine WBC (0-5) /hpf Hyaline Casts (0-3) /lpf Urine Mucus (Occasional) /lpf Micro UA Comment Ur Microscopic Review Urine Culture Comments Urine Opiates Screen Neg (Neg) Ur Barbiturates Screen Neg (Neg) Ur Amphetamines Screen Neg (Neg) U Benzodiazepines Scrn Neg (Neg) Urine Cocaine Screen Neg (Neg) U Cannabinoids Screen Neg (Neg) Serum Alcohol Less than 3 (0-5) mg/dL 03/29/18 Range/Units 07:14 WBC (4.0-11.0) th/mm3 RBC (4.50-5.90) mil/mm3 Hgb (13.0-17.0) gm/dL Hct (39.0-51.0) % MCV (80.0-100.0) fL MCH (27.0-34.0) pg MCHC (32.0-36.0) % RDW (11.6-17.2) % Plt Count (150-450) th/mm3 MPV (7.0-11.0) fL Prelim Diff (Auto) Neut % (Auto) (16.0-70.0) % Lymph % (Auto) (9.0-44.0) % Carter % (Auto) (0.0-8.0) % Eos % (Auto) (0.0-4.0) % Baso % (Auto) (0.0-2.0) % Neut # (Auto) (1.8-7.7) th/mm3 Lymph # (Auto) (1.0-4.8) th/mm3 Carter # (Auto) (0.0-0.9) th/mm3 Eos # (Auto) (0.0-0.4) th/mm3 Baso # (Auto) (0.0-0.2) th/mm3 WBC Differential Diff Scan Differential Comment Toxic Granulation (None) Platelet Estimate (Normal) Platelet Morphology (Normal) Spherocytes (None) Sodium (136-145) meq/L Potassium (3.5-5.1) meq/L Chloride (98-107) meq/L Carbon Dioxide (21.0-32.0) meq/L Anion Gap (5-15) meq/L BUN (7-18) mg/dL Creatinine (0.60-1.30) mg/dL Estimated GFR (>89) mL/min Random Glucose (74-106) mg/dL Calcium (8.5-10.1) mg/dL Total Bilirubin (0.2-1.0) mg/dL AST (15-37) U/L ALT (12-78) U/L Alkaline Phosphatase (45-117) U/L Total Protein (6.4-8.2) g/dL Albumin (3.4-5.0) g/dL TSH (0.358-3.740) uIU/mL Urine Color [place] (Yellw/Straw) Urine Clarity Haz[place] H (Clear) Urine pH 5.0 (5.0-8.5) Ur Specific [place] 1.024 (1.002-1.035) Urine Protein Negative (Neg-Trace) mg/dL Urine Glucose (UA) Negative (Negative) mg/dL Urine Ketones Trace (Negative) mg/dL Urine Occult Blood Negative (Negative) Urine Nitrate Negative (Negative) Urine Bilirubin Negative (Negative) Urine Urobilinogen 2.0 H (Less than 2) mg/dL Ur Leukocyte Esterase Negative (Negative) Urine WBC 2 (0-5) /hpf Hyaline Casts 26 (0-3) /lpf Urine Mucus Few H (Occasional) /lpf Micro UA Comment Culture not ind Ur Microscopic Review Not Reportable Urine Culture Comments Culture not ind Urine Opiates Screen (Neg) Ur Barbiturates Screen (Neg) Ur Amphetamines Screen (Neg) U Benzodiazepines Scrn (Neg) Urine Cocaine Screen (Neg) U Cannabinoids Screen (Neg) Serum Alcohol (0-5) mg/dL
[2018-03-29] MEDS ORDERED: LORazepam 1 MG Tablet PO PRN (12:57)
[2018-03-29] MEDS ORDERED: Aluminum/Magnesium/Simethacone Susp 30 ML UDC PO PRN (12:57)
[2018-03-30 08:59] LABS: Eos # (Auto) 0.1 th/mm3 (0.0-0.4); Eos % (Auto) 3.5 % (0.0-4.0); Hematocrit 36.7 % (39.0-51.0); Hemoglobin 12.5 gm/dL (13.0-17.0); Lymph # (Auto) 1.3 th/mm3 (1.0-4.8); Lymph % (Auto) 36.9 % (9.0-44.0); Mean Corpuscular HGB Conc 34.1 % (32.0-36.0); Mean Corpuscular Hemoglobin 33.8 pg (27.0-34.0); Mean Platelet Volume 10.9 fL (7.0-11.0); Mono # (Auto) 0.4 th/mm3 (0.0-0.9); Mono % (Auto) 12.1 % (0.0-8.0); Neut # (Auto) 1.6 th/mm3 (1.8-7.7); Neut % (Auto) 46.5 % (16.0-70.0); Platelet Count 49 th/mm3 (150-450); Red Cell Distribution Width 16.3 % (11.6-17.2); White Blood Count 3.4 th/mm3 (4.0-11.0)
[2018-03-30 09:39] LABS: Alanine Aminotransferase 44 U/L (12-78); Albumin 2.8 g/dL (3.4-5.0); Alkaline Phosphatase 230 U/L (45-117); Anion Gap 9 meq/L (5-15); Aspartate Aminotransferase 64 U/L (15-37); Blood Urea Nitrogen 17 mg/dL (7-18); Calcium 7.9 mg/dL (8.5-10.1); Carbon Dioxide 25.1 meq/L (21.0-32.0); Chloride 102 meq/L (98-107); Chol/HDL Ratio 3.62 Ratio; Cholesterol 173 mg/dL (120-200); Glomerular Filtration Rate 80 mL/min (>89); Glucose,Random 152 mg/dL (74-106); HDL Cholesterol 47.7 mg/dL (40.0-60.0); LDL Cholesterol,Calculated 89 mg/dL (0-99); Sodium 136 meq/L (136-145); Total Protein 6.7 g/dL (6.4-8.2); Triglycerides 183 mg/dL (42-150)
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
[2018-03-30 17:06] LABS: Hemoglobin A1c 5.2 % (4.3-6.0)
[2018-03-30] MEDS: ARIPiprazole 5 MG Tablet PO SCH (20:47)
[2018-03-30] MEDS: Non-Formulary Drug (Metoprolol Succinate [Metoprolol Succinate] 100 MG) PO SCH (20:49)
--- NOTE | 2018-03-30 21:12 | ECG ---
Date Performed: 03/30/2018 Time Performed: 07:48:23 PTAGE: 57 years EKG: Sinus rhythm NONSPECIFIC ST & T-WAVE ABNORMALITY BORDERLINE ECG PREVIOUS TRACING : 02/24/2016 14.59 Since the previous tracing, no significant change noted DOCTOR: Salvador Evans Interpretating Date/Time 03/30/2018 21:10:25
[2018-03-31 07:58] LABS: Hematocrit 34.5 % (39.0-51.0); Hemoglobin 11.9 gm/dL (13.0-17.0); Mean Corpuscular HGB Conc 34.4 % (32.0-36.0); Mean Corpuscular Hemoglobin 33.5 pg (27.0-34.0); Mean Corpuscular Volume 97.3 fL (80.0-100.0); Mean Platelet Volume 10.8 fL (7.0-11.0); Platelet Count 38 th/mm3 (150-450); Red Blood Count 3.54 mil/mm3 (4.50-5.90); Red Cell Distribution Width 16.2 % (11.6-17.2)
[2018-03-31 08:33] LABS: Albumin 2.7 g/dL (3.4-5.0); Anion Gap 10 meq/L (5-15); Aspartate Aminotransferase 67 U/L (15-37); Blood Urea Nitrogen 11 mg/dL (7-18); Calcium 8.3 mg/dL (8.5-10.1); Carbon Dioxide 24.5 meq/L (21.0-32.0); Chloride 104 meq/L (98-107); Glomerular Filtration Rate Greater Than 89 mL/min (>89); Glucose,Random 111 mg/dL (74-106); Potassium 3.8 meq/L (3.5-5.1); Sodium 138 meq/L (136-145)
[2018-03-31 08:34] LABS: Alanine Aminotransferase 45 U/L (12-78)
[2018-03-31 08:37] LABS: Alkaline Phosphatase 231 U/L (45-117); Total Protein 6.5 g/dL (6.4-8.2)
[2018-03-31] MEDS: Non-Formulary Drug (Metoprolol Succinate [Metoprolol Succinate] 100 MG) PO SCH (08:52)
[2018-03-31 10:40] LABS: Reticulocyte Percent 0.6 % (0.4-3.0)
[2018-03-31 10:43] LABS: INR 1.4 Ratio; Prothrombin Time 13.8 sec (9.8-11.6)
[2018-03-31 11:01] LABS: Lactate Dehydrogenase 166 U/L (87-241)
[2018-03-31 11:05] LABS: % Iron Saturation 93.4 % (20-50)
[2018-03-31 11:25] LABS: Vitamin B12 873 pg/mL (193-986)
[2018-03-31 11:56] LABS: Hepatitis A IgM Antibody Nonreactive (Nonreactive)
[2018-03-31 11:57] LABS: Hepatitits B Surface Antigen Nonreactive (Nonreactive)
[2018-03-31] MEDS ORDERED: LORazepam 1 MG Tablet PO PRN (14:34)
[2018-03-31] MEDS ORDERED: Haloperidol Inj 5 MG/ML Ampul IV.PUSH PRN (14:34)
--- NOTE | 2018-03-31 14:43 | P.CONGI ---
History of Present Illness Consult date: 03/31/18 Consult reason: Elevated LFTs Chief complaint: Bipolar Disorder History of Present Illness: This is a 57 yo M who is currently admitted to [facility] unit under a harper act. Our service has been consulted to evaluate for elevated liver enzymes. Pt reports known history of cirrhosis, states he was diagnosed with this ten years ago, does not follow up with a GI doctor. At this time pt denies all GI complaints including nausea, vomiting, abdominal pain and swelling, and changes in bowel habits. Pt reports he drinks heavily, can drink up to a gallon and a half of vodka over two days, last ETOH reported was a week ago. Also states he has been taking multiple tabs at night for sleep, [employer] brand, unsure if these contain any Tylenol. Denies any other OTC herbs, supplements and medication. Pt denies family history of liver issues. Denies history of illicit drug use, tattoos, and high risk sexual behaviors. <Corrie Celaya - Last Filed: 03/31/18 14:50> Review of Systems Constitutional: Denies weight loss Gastrointestinal: Denies abdominal pain, Denies change in bowel habits, Denies nausea, Denies vomiting <Corrie Celaya - Last Filed: 03/31/18 14:50> PMFSH - History History Provided By: Patient, Medical Record - Medical History Medical History: Medical History (Last Updated 03/31/18 @ 14:23 by Naina Grier) Bipolar disorder Hypertension Schizophrenia Umbilical hernia - Surgical History Surgical History: Surgical History (Last Updated 03/31/18 @ 14:25 by Naina Grier) History of umbilical hernia repair (Acute) - Family History Family History: Family History (Last Updated 03/31/18 @ 14:27 by Naina Grier) Other Heart disease Hypertension - Tobacco History Second Hand Smoke Exposure: No Tobacco Use In Past 30 Days: No Smoking Status: Former smoker Tobacco Type: Cigarettes - Alcohol History How Often Do You Have a Drink Containing Alcohol: Unable to Obtain - Substance Use History Substance History: Unable to Obtain - Substance Use Type Alcohol Status: Active Route Used: By Mouth Reason for Use: Calm Down, Feels Good - Travel History Recent Travel in the [place] Within the Last 8 Weeks: No Recent Travel Out of the Country Within the Last 8 Weeks: No - Immunization History Tetanus Immunization: Unsure Hx Influenza Vaccine This Season: No <LanceCorrie holley - Last Filed: 03/31/18 14:50> - Medical History Medical History: Medical History (Last Updated 03/31/18 @ 14:23 by Naina Grier) Bipolar disorder Hypertension Schizophrenia Umbilical hernia - Surgical History Surgical History: Surgical History (Last Updated 03/31/18 @ 14:25 by Naina Grier) History of umbilical hernia repair (Acute) - Family History Family History: Family History (Last Updated 03/31/18 @ 14:27 by Naina Grier) Other Heart disease Hypertension <Ronni Villanueva - Last Filed: 03/31/18 16:32> Medications and Allergies Active Medications: Active Medications Al Hydrox/Mg Hydrox/Simethicone (Mag-Al Plus Susp Liq) 30 ml PO Q6H PRN PRN Reason: DYSPEPSIA Al Hydroxide/Mg Hydroxide (Milk Of Magnesia Liq) 30 ml PO Q12H PRN PRN Reason: Mild Constipation Aripiprazole (Abilify) 5 mg PO HS [facility] Last Admin: 03/30/18 20:47 Dose: 5 mg Diphenhydramine HCl (Benadryl) 50 mg PO HS PRN PRN Reason: INSOMNIA Last Admin: 03/30/18 20:47 Dose: 50 mg Flumazenil (Romazecon Inj) 0.2 mg IV.PUSH Q1M PRN PRN Reason: OVERSEDATION Haloperidol Lactate (Haldol Inj) 1 mg IV.PUSH Q15M PRN PRN Reason: for severe agitation Hydroxyzine HCl (Atarax) 50 mg PO Q6H PRN PRN Reason: ANXIETY Last Admin: 03/31/18 01:49 Dose: 50 mg Lorazepam (Ativan) 1 mg PO Q4H PRN PRN Reason: for CIWA 8-10 Lorazepam (Ativan) 2 mg PO Q2H PRN PRN Reason: for CIWA 11-14 Lorazepam (Ativan Inj) 2 mg IV.PUSH Q2H PRN PRN Reason: for CIWA 11-14 Lorazepam (Ativan Inj) 2 mg IV.PUSH Q1H PRN PRN Reason: for CIWA 15-20 Lorazepam (Ativan Inj) 2 mg IV.PUSH Q15M PRN PRN Reason: for CIWA > 20 Lorazepam (Ativan Inj) 1 mg IV.PUSH Q4H PRN PRN Reason: for CIWA 8-10 Non-Formulary Medication (Metoprolol Succinate [Metoprolol Succinate]) 100 mg PO DAILY [facility] Last Admin: 03/31/18 08:52 Dose: Not Given Ziprasidone (Geodon Inj) 10 mg IM Q12H PRN PRN Reason: SEVERE AGITATION <Corrie Celaya - Last Filed: 03/31/18 14:50> Active Medications: Active Medications Al Hydrox/Mg Hydrox/Simethicone (Mag-Al Plus Susp Liq) 30 ml PO Q6H PRN PRN Reason: DYSPEPSIA Al Hydroxide/Mg Hydroxide (Milk Of Magnesia Liq) 30 ml PO Q12H PRN PRN Reason: Mild Constipation Aripiprazole (Abilify) 5 mg PO HS [facility]EVE Last Admin: 03/30/18 20:47 Dose: 5 mg Diphenhydramine HCl (Benadryl) 50 mg PO HS PRN PRN Reason: INSOMNIA Last Admin: 03/30/18 20:47 Dose: 50 mg Flumazenil (Romazecon Inj) 0.2 mg IV.PUSH Q1M PRN PRN Reason: OVERSEDATION Folic Acid (Folic Acid) 1 mg PO DAILY [facility] Haloperidol Lactate (Haldol Inj) 1 mg IV.PUSH Q15M PRN PRN Reason: for severe agitation Hydroxyzine HCl (Atarax) 50 mg PO Q6H PRN PRN Reason: ANXIETY Last Admin: 03/31/18 01:49 Dose: 50 mg Lorazepam (Ativan) 1 mg PO Q4H PRN PRN Reason: for CIWA 8-10 Lorazepam (Ativan) 2 mg PO Q2H PRN PRN Reason: for CIWA 11-14 Lorazepam (Ativan Inj) 2 mg IV.PUSH Q2H PRN PRN Reason: for CIWA 11-14 Lorazepam (Ativan Inj) 2 mg IV.PUSH Q1H PRN PRN Reason: for CIWA 15-20 Lorazepam (Ativan Inj) 2 mg IV.PUSH Q15M PRN PRN Reason: for CIWA > 20 Lorazepam (Ativan Inj) 1 mg IV.PUSH Q4H PRN PRN Reason: for CIWA 8-10 Multivitamins (Theragran) 1 tab PO DAILY [facility] Non-Formulary Medication (Metoprolol Succinate [Metoprolol Succinate]) 100 mg PO DAILY [facility] Last Admin: 03/31/18 08:52 Dose: Not Given Thiamine HCl (Vitamin B1) 100 mg PO BID [facility] Ziprasidone (Geodon Inj) 10 mg IM Q12H PRN PRN Reason: SEVERE AGITATION <Ronni Villanueva - Last Filed: 03/31/18 16:32> Allergies Allergy/AdvReac Type Severity Reaction Status Date / Time No Known Allergies Allergy Unverified 03/28/18 19:10 Home Medications Medication Instructions Recorded Confirmed Type metoprolol succinate 100 mg PO DAILY 03/28/18 03/28/18 History metoprolol tartrate [Lopressor] 100 mg PO BID 03/28/18 03/28/18 History aripiprazole 10 mg PO DAILY 03/29/18 03/29/18 History hydroxyzine pamoate 50 mg PO HS 03/29/18 03/29/18 History losartan 100 mg PO DAILY 03/29/18 03/29/18 History metoprolol tartrate 50 mg PO DAILY 03/29/18 03/29/18 History Exam Vital signs: Vital Signs 03/30/18 17:18 03/31/18 06:32 Temperature 97.7 F 98.5 F Pulse Rate 92 H 97 H Respiratory Rate 16 16 Blood Pressure 128/75 122/72 Pulse Oximetry 97 99 Intake & Output 03/30/18 03/31/18 03/31/18 18:59 06:59 18:59 Weight 109.2 kg - Constitutional no acute distress - Routine HEENT Exam Head: Present: normocephalic, atraumatic - Routine Respiratory Exam Absent: accessory muscle use - Routine Abdominal Exam Present: soft, normoactive bowel sounds. Absent: tenderness, distended - Routine Skin Exam Present: dry, warm - Routine Neurological Exam Present: alert, oriented X3 <Corrie Celaya - Last Filed: 03/31/18 14:50> Vital signs: Vital Signs 03/30/18 17:18 03/31/18 06:32 Temperature 97.7 F 98.5 F Pulse Rate 92 H 97 H Respiratory Rate 16 16 Blood Pressure 128/75 122/72 Pulse Oximetry 97 99 Intake & Output 08/03/31/18 03/31/18 18:59 06:59 18:59 Weight 109.2 kg <Ronni Villanueva - Last Filed: 03/31/18 16:32> Results - Labs CBC & Chem 7: 03/31/18 06:57 03/31/18 06:57 Labs: Laboratory Results - last 24 hr 03/30/18 03/31/18 03/31/18 08:01 06:57 06:57 WBC 3.0 L RBC 3.54 L Hgb 11.9 L Hct 34.5 L MCV 97.3 MCH 33.5 MCHC 34.4 RDW 16.2 Plt Count 38 L MPV 10.8 Retic Count Absolute Retic Haptoglobin PT INR Sodium 138 Potassium 3.8 Chloride 104 Carbon Dioxide 24.5 Anion Gap 10 BUN 11 Creatinine 0.68 Estimated GFR Greater than 89 Random Glucose 111 H Hemoglobin A1c 5.2 Calcium 8.3 L Iron TIBC % Saturation Ferritin Total Bilirubin 2.5 H AST 67 H ALT 45 Alkaline Phosphatase 231 H Lactate Dehydrogenase Total Protein 6.5 Albumin 2.7 L Lipase Vitamin B12 Hepatitis A IgM Ab Hep Bs Antigen Hep B Core IgM Ab Hep C IgG Ab 03/31/18 03/31/18 03/31/18 06:57 10:20 10:20 WBC RBC Hgb Hct MCV MCH MCHC RDW Plt Count MPV Retic Count 0.6 Absolute Retic 23.2 Haptoglobin 16 L PT 13.8 H INR 1.4 Sodium Potassium Chloride Carbon Dioxide Anion Gap BUN Creatinine Estimated GFR Random Glucose Hemoglobin A1c Calcium Iron TIBC % Saturation Ferritin Total Bilirubin AST ALT Alkaline Phosphatase Lactate Dehydrogenase 166 Total Protein Albumin Lipase Vitamin B12 873 Hepatitis A IgM Ab Hep Bs Antigen Hep B Core IgM Ab Hep C IgG Ab 03/31/18 03/31/18 10:20 10:20 WBC RBC Hgb Hct MCV MCH MCHC RDW Plt Count MPV Retic Count Absolute Retic Haptoglobin PT INR Sodium Potassium Chloride Carbon Dioxide Anion Gap BUN Creatinine Estimated GFR Random Glucose Hemoglobin A1c Calcium Iron 166 TIBC 178 L % Saturation 93.4 H Ferritin 468 H Total Bilirubin AST ALT Alkaline Phosphatase Lactate Dehydrogenase Total Protein Albumin Lipase 189 Vitamin B12 Hepatitis A IgM Ab Nonreactive Hep Bs Antigen Nonreactive Hep B Core IgM Ab Nonreactive Hep C IgG Ab Nonreactive <Corrie Celaya - Last Filed: 03/31/18 14:50> - Labs CBC & Chem 7: 03/31/18 06:57 03/31/18 06:57 Labs: Laboratory Results - last 24 hr 03/30/18 03/31/18 03/31/18 08:01 06:57 06:57 WBC 3.0 L RBC 3.54 L Hgb 11.9 L Hct 34.5 L MCV 97.3 MCH 33.5 MCHC 34.4 RDW 16.2 Plt Count 38 L MPV 10.8 Retic Count Absolute Retic Haptoglobin PT INR Sodium 138 Potassium 3.8 Chloride 104 Carbon Dioxide 24.5 Anion Gap 10 BUN 11 Creatinine 0.68 Estimated GFR Greater than 89 Random Glucose 111 H Hemoglobin A1c 5.2 Calcium 8.3 L Iron TIBC % Saturation Ferritin Total Bilirubin 2.5 H AST 67 H ALT 45 Alkaline Phosphatase 231 H Ammonia Lactate Dehydrogenase Total Protein 6.5 Albumin 2.7 L Lipase Vitamin B12 Hepatitis A IgM Ab Hep Bs Antigen Hep B Core IgM Ab Hep C IgG Ab 03/31/18 03/31/18 03/31/18 06:57 10:20 10:20 WBC RBC Hgb Hct MCV MCH MCHC RDW Plt Count MPV Retic Count 0.6 Absolute Retic 23.2 Haptoglobin 16 L PT 13.8 H INR 1.4 Sodium Potassium Chloride Carbon Dioxide Anion Gap BUN Creatinine Estimated GFR Random Glucose Hemoglobin A1c Calcium Iron TIBC % Saturation Ferritin Total Bilirubin AST ALT Alkaline Phosphatase Ammonia Lactate Dehydrogenase 166 Total Protein Albumin Lipase Vitamin B12 873 Hepatitis A IgM Ab Hep Bs Antigen Hep B Core IgM Ab Hep C IgG Ab 03/31/18 03/31/18 03/31/18 10:20 10:20 14:38 WBC RBC Hgb Hct MCV MCH MCHC RDW Plt Count MPV Retic Count Absolute Retic Haptoglobin PT INR Sodium Potassium Chloride Carbon Dioxide Anion Gap BUN Creatinine Estimated GFR Random Glucose Hemoglobin A1c Calcium Iron 166 TIBC 178 L % Saturation 93.4 H Ferritin 468 H Total Bilirubin AST ALT Alkaline Phosphatase Ammonia 32 Lactate Dehydrogenase Total Protein Albumin Lipase 189 Vitamin B12 Hepatitis A IgM Ab Nonreactive Hep Bs Antigen Nonreactive Hep B Core IgM Ab Nonreactive Hep C IgG Ab Nonreactive - Imaging Impressions Liver Ultrasound 03/31/18 00:00 CONCLUSION: 1. There continues to be some increased echogenicity throughout the liver characteristic for fatty infiltration. 2. There continues to be evidence of splenomegaly. 3. No new or significant changes compared back to 2016. <Ronni Villanueva - Last Filed: 03/31/18 16:32> Assessment and Plan - Plan Assessment: - Elevated LFTs in setting of ETOH abuse and known history of cirrhosis Discriminant function-11 AST-67 ALT-45 T bili-2.5 Alk phos-231 Coagulopathy, thrombocytopenia, and hypoalbuminemia Pt reports heavy ETOH, drinks up to a gallon and a half of vodka over a two day period. Denies history of illicit drug use, tattoos, high risk sexual behaviors. Hepatitis profile negative. Of note, pt reports taking multiple [employer] brand sleep tabs at night, unsure if there is any Tylenol in this. Denies any OTC herbs, supplements, and medications Plan: US liver Liver work up to rule out other etiology HFE- Iron sat 93% Tylenol level Avoid hepatotoxins Further recommendations to follow Pt has been seen and examined by myself and Dr. Villanueva and this note is written on his behalf <Corrie Celaya - Last Filed: 03/31/18 14:50> - Plan Seen and examined with [facility], liver self ordered including HFE gene and U/S. Will follow. Thank you The exam, history, and the medical decision-making described in the above note were completed with the assistance of the mid-level provider. I reviewed and agree with the findings presented. I attest that I had a [id number] encounter with the patient on the same day, and personally performed and documented my assessment and findings in the medical record. <Ronni Villanueva - Last Filed: 03/31/18 16:32>
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
--- NOTE | 2018-03-31 15:39 | P.PNPSY ---
Subjective Remarks: Reviewed electronic medical record and discussed case with staff. Follow up conducted in patient's room. He reports that he slept "great" and has a good appetite. He reports that he "moved here to help my mom, she has cancer, and she 's not doing anything for me!" Patient has expressed to staff (tearfully at times) that he is concerned with is future living arrangements. He is goal directed to find placement after discharge, asking multiple times who his case management social worker is and when he can see them. Mental Status Examination Appearance: Disheveled Consciousness: Alert Orientation: x4 Motor Activity: Normal gait Speech: Unremarkable Language: Adequate Fund of Knowledge: Adequate Attention and Concentration: Adequate Memory: Unremarkable Mood: Other ("frustrated") Affect: Blunt Thought Process & Associations: Circumstantial, Tangential Thought Content: Other (suspicious of family) Hallucination Type: Auditory (denies) Delusion Type: Paranoid Suicidal Ideation: No Suicidal Plan: No Suicidal Intention: No Homicidal Ideation: No Homicidal Plan: No Homicidal Intention: No Insight: Poor Judgment: Impulsive Assessment and Plan - Assessment (1) Bipolar disorder Code(s): F31.9 - Bipolar disorder, unspecified Status: Acute - Plan Plan: Continue with current treatment plan. Therapist reports that he was still showing some signs of delusion during group today. Justification for Continued Inpatient Stay: Moving this patient to a lower level of care would result in decompensation.
--- NOTE | 2018-03-31 16:05 | P.CONPSY ---
Provisional Diagnosis Admission Date: March 29, 2018 12:57 [place] I.: Bipolar disorder History of Present Illness Service: Psychiatry Consult date: 03/31/18 Requesting Physician: [place] Wolf Reason for Consult: Second opinion petition supporting Ortiz act Primary Care Provider: UNKNOWN Family Provider: UNKNOWN History of Present Illness: Patient is 57-year-old white male admitted to Dr. Wolf service under the Ortiz act.'s H&P reviewed and agreed with. Dr. Wolf assigned first opinion petition supporting Ortiz act. Patient seen by me with Counselor Edwina history remains somewhat delusional paranoid focusing on his mother's behavior. He is showing no insight into his disease. He is vague about compliance with his medications. At this time I feel patient does meet criteria for involuntary psychiatric hospitalization thus I will cosign second opinion petition supporting Ortiz act Review of Systems All other systems reviewed negative except as stated in HPI PMFSH - History History Provided By: Patient, Medical Record - Medical History Medical History: Medical History (Last Updated 03/31/18 @ 14:23 by Naina Grier) Bipolar disorder Hypertension Schizophrenia Umbilical hernia - Surgical History Surgical History: Surgical History (Last Updated 03/31/18 @ 14:25 by Naina Grier) History of umbilical hernia repair (Acute) - Family History Family History: Family History (Last Updated 03/31/18 @ 14:27 by Naina Grier) Other Heart disease Hypertension - Tobacco History Second Hand Smoke Exposure: No Tobacco Use In Past 30 Days: No Smoking Status: Former smoker Tobacco Type: Cigarettes - Alcohol History How Often Do You Have a Drink Containing Alcohol: Unable to Obtain - Substance Use History Substance History: Unable to Obtain - Substance Use Type Alcohol Status: Active Route Used: By Mouth Reason for Use: Calm Down, Feels Good - Travel History Recent Travel in the [place] Within the Last 8 Weeks: No Recent Travel Out of the Country Within the Last 8 Weeks: No - Immunization History Tetanus Immunization: Unsure Hx Influenza Vaccine This Season: No Medications and Allergies Active Medications: Active Medications Al Hydrox/Mg Hydrox/Simethicone (Mag-Al Plus Susp Liq) 30 ml PO Q6H PRN PRN Reason: DYSPEPSIA Al Hydroxide/Mg Hydroxide (Milk Of Magnesia Liq) 30 ml PO Q12H PRN PRN Reason: Mild Constipation Aripiprazole (Abilify) 5 mg PO HS STEVE Last Admin: 03/30/18 20:47 Dose: 5 mg Diphenhydramine HCl (Benadryl) 50 mg PO HS PRN PRN Reason: INSOMNIA Last Admin: 03/30/18 20:47 Dose: 50 mg Flumazenil (Romazecon Inj) 0.2 mg IV.PUSH Q1M PRN PRN Reason: OVERSEDATION Folic Acid (Folic Acid) 1 mg PO DAILY [facility] Haloperidol Lactate (Haldol Inj) 1 mg IV.PUSH Q15M PRN PRN Reason: for severe agitation Hydroxyzine HCl (Atarax) 50 mg PO Q6H PRN PRN Reason: ANXIETY Last Admin: 03/31/18 01:49 Dose: 50 mg Lorazepam (Ativan) 1 mg PO Q4H PRN PRN Reason: for CIWA 8-10 Lorazepam (Ativan) 2 mg PO Q2H PRN PRN Reason: for CIWA 11-14 Lorazepam (Ativan Inj) 2 mg IV.PUSH Q2H PRN PRN Reason: for CIWA 11-14 Lorazepam (Ativan Inj) 2 mg IV.PUSH Q1H PRN PRN Reason: for CIWA 15-20 Lorazepam (Ativan Inj) 2 mg IV.PUSH Q15M PRN PRN Reason: for CIWA > 20 Lorazepam (Ativan Inj) 1 mg IV.PUSH Q4H PRN PRN Reason: for CIWA 8-10 Multivitamins (Theragran) 1 tab PO DAILY [facility] Non-Formulary Medication (Metoprolol Succinate [Metoprolol Succinate]) 100 mg PO DAILY [facility] Last Admin: 03/31/18 08:52 Dose: Not Given Thiamine HCl (Vitamin B1) 100 mg PO BID [facility] Ziprasidone (Geodon Inj) 10 mg IM Q12H PRN PRN Reason: SEVERE AGITATION Allergies Allergy/AdvReac Type Severity Reaction Status Date / Time No Known Allergies Allergy Unverified 03/28/18 19:10 Home Medications Medication Instructions Recorded Confirmed Type metoprolol succinate 100 mg PO DAILY 03/28/18 03/28/18 History metoprolol tartrate [Lopressor] 100 mg PO BID 03/28/18 03/28/18 History aripiprazole 10 mg PO DAILY 03/29/18 03/29/18 History hydroxyzine pamoate 50 mg PO HS 03/29/18 03/29/18 History losartan 100 mg PO DAILY 03/29/18 03/29/18 History metoprolol tartrate 50 mg PO DAILY 03/29/18 03/29/18 History Exam Vital signs: Vital Signs 03/30/18 17:18 03/31/18 06:32 Temperature 97.7 F 98.5 F Pulse Rate 92 H 97 H Respiratory Rate 16 16 Blood Pressure 128/75 122/72 Pulse Oximetry 97 99 Intake & Output 03/30/18 03/31/18 03/31/18 18:59 06:59 18:59 Weight 109.2 kg Mental Status Examination Appearance: Disheveled Consciousness: Alert Orientation: x4 Motor Activity: Normal gait Speech: Unremarkable Language: Adequate Fund of Knowledge: Adequate Attention and Concentration: Adequate Memory: Unremarkable Mood: Other ("frustrated") Affect: Blunt Thought Process & Associations: Circumstantial, Tangential Thought Content: Other (suspicious of family) Hallucination Type: Auditory (denies) Delusion Type: Paranoid Suicidal Ideation: No Suicidal Plan: No Suicidal Intention: No Homicidal Ideation: No Homicidal Plan: No Homicidal Intention: No Insight: Poor Judgment: Impulsive Assessment and Plan - Assessment (1) Bipolar disorder Code(s): F31.9 - Bipolar disorder, unspecified Status: Acute - Plan Plan: At this time patient meets criteria for involuntary psychiatric hospitalization of the Ortiz act thus I will cosign second opinion petition supporting Ortiz act Justification for Continued Inpatient Stay: At this time patient would decompensate if placed in a lower level of care Discharge Planning: To be determined
--- NOTE | 2018-03-31 16:20 | US ---
EXAM DATE: 03/31/2018 4:13 PM EDT AGE/SEX: 57 years / Male INDICATIONS: Increased lab values. CLINICAL DATA: This is the patient's subsequent encounter. Patient reports that signs and symptoms h ave been present for 1 day and indicates a pain score of 2/10. MEDICAL/SURGICAL HISTORY: Hypertension. Bipolar disorder. Schizophrenia. None. COMPARISON: [facility] – [place] - LIVER, 02/24/2016. . MEASUREMENTS: Liver:__ 18.6 cm. Common Bile Duct:__ 6mm. Right Kidney:__ 10.9 x 5.8 x 5.9 cm. FINDINGS: Liver: Increased echotexture without focal lesion or ductal dilation. This is not significantly chavez ed compared to the prior study. Portal Vein: Hepatopedal flow seen in portal vein. There has been recanalization of the periumbilical vein. Common Duct: No intraluminal mass or stone visualized. Gallbladder: Demonstrates no wall thickening or pericholecystic fluid. No stones visualized. Pancreas: Not well visualized. Right Kidney: Normal echotexture and cortical thickness. No mass or hydronephrosis. Other: The spleen appears to be enlarged measuring 21 cm. This is stable compared to the prior study . No significant change compared to the prior exam. CONCLUSION: 1. There continues to be some increased echogenicity throughout the liver characteristic for fatty i nfiltration. 2. There continues to be evidence of splenomegaly. 3. No new or significant changes compared back to 2016. Electronically signed by: Yuri Roberts MD 03/31/2018 4:19 PM EDT
[2018-03-31 16:57] LABS: Alpha Fetoprotein Tumor Marker 5.3 ng/mL (0.5-8.0)
--- NOTE | 2018-03-31 17:05 | P.CON ---
History of Present Illness Service: Hematology/oncology Consult date: 03/31/18 Requesting Physician: Filemon Baig Reason for Consult: Pancytopenia in a patient with splenomegaly. Primary Care Provider: UNKNOWN Family Provider: UNKNOWN Chief Complaint: Patient tells me he feels much improved today. History of Present Illness: Mr. Hu is a 57-year-old man who is currently in the inpatient psychiatric unit at [facility], He Was Admitted under the Ortiz Act for erratic behavior and aggressive behavior towards his family. This patient has a history of alcohol abuse and related hepatic steatosis and resultant splenomegaly. The patient has chronic thrombocytopenia dating back to at least 2015 at which time he was noted to have a platelet count in the 60, 000 range. The patient tells me he has been made aware of his thrombocytopenia , he was undergoing preoperative workup for repair of an umbilical hernia, he tells me his platelet counts are 55,000 about a week and a half ago on blood work performed at [facility]. After hospitalization CBC indicated platelet count 91,000, he also had normal WBC count at admission, since hospitalization his WBC count and platelet counts have declined. Platelet count on blood work drawn today was noted to be 34, 000. Ultrasound of the abdomen performed earlier today revealed steatohepatitis , his spleen span was noted to be 21 cm which is significantly enlarged. Ultrasound of the abdomen performed in 2016 revealed his spleen to measure up to 20 cm, he at that time also had steatohepatitis. Patient tells me he has not been drinking in well over 2 years, prior to that he drank about half a gallon of vodka daily. I did review the patient's medical chart, he has not been on heparin this admission. Subjectively; he speaks to me with significant background understanding of thrombocytopenia, he is aware of platelet function in the body and tells me that he has noticed increased bruising lately. He tells me after he was told he had low platelet counts he read as much as he could on platelets on the Internet, he tells me that he was going to request his primary care physician for hematology referral. Review of Systems Constitutional: Reports weight gain, Denies anorexia, Denies body ache(s) Eyes: Denies blind spots, Denies change in vision Ears, Nose, Mouth, and Throat: Denies abnormal hearing, Denies bleeding gums, Denies change in voice Cardiovascular: Denies chest pain, Denies shortness of breath when lying down, Denies shortness of breath causing sudden awakening Respiratory: Denies change in phlegm color, Denies cough Gastrointestinal: Denies abdominal pain, Denies black, tarry stools, Denies bright, red blood in stools, Denies pain with swallowing, Denies vomiting Genitourinary: Denies blood in urine Musculoskeletal: Denies abnormal walking, Denies back pain Skin/Breast: Denies acne Comments: Easy bruising. Neurologic: Denies abnormal hearing, Denies headache(s) Psychiatric: Denies abnormal sleep pattern Endocrine: Denies cold intolerance Hematologic/Lymphatic: Reports easy bruising Allergic/Immunologic: Denies GI upset with certain foods PMFSH - History History Provided By: Patient, Medical Record - Medical History Medical History: Medical History (Last Updated 03/31/18 @ 16:58 by Leandro Hill MD) Alcohol abuse Bipolar disorder Hypertension Schizophrenia Splenomegaly, congestive, chronic Steatohepatitis, alcoholic Thrombocytopenia Umbilical hernia - Surgical History Surgical History: Surgical History (Last Updated 03/31/18 @ 14:25 by Naina Grier) History of umbilical hernia repair (Acute) - Family History Family History: Family History (Last Updated 03/31/18 @ 14:27 by Naina Grier) Other Heart disease Hypertension - Tobacco History Second Hand Smoke Exposure: No Tobacco Use In Past 30 Days: No Smoking Status: Former smoker Tobacco Type: Cigarettes - Alcohol History How Often Do You Have a Drink Containing Alcohol: Unable to Obtain - Substance Use History Substance History: Unable to Obtain - Substance Use Type Alcohol Status: Active Route Used: By Mouth Reason for Use: Calm Down, Feels Good - Travel History Recent Travel in the [place] Within the Last 8 Weeks: No Recent Travel Out of the Country Within the Last 8 Weeks: No - Immunization History Tetanus Immunization: Unsure Hx Influenza Vaccine This Season: No Medications and Allergies Active Medications: Active Medications Al Hydrox/Mg Hydrox/Simethicone (Mag-Al Plus Susp Liq) 30 ml PO Q6H PRN PRN Reason: DYSPEPSIA Al Hydroxide/Mg Hydroxide (Milk Of Magnesia Liq) 30 ml PO Q12H PRN PRN Reason: Mild Constipation Aripiprazole (Abilify) 5 mg PO HS STEVE Last Admin: 03/30/18 20:47 Dose: 5 mg Diphenhydramine HCl (Benadryl) 50 mg PO HS PRN PRN Reason: INSOMNIA Last Admin: 03/30/18 20:47 Dose: 50 mg Flumazenil (Romazecon Inj) 0.2 mg IV.PUSH Q1M PRN PRN Reason: OVERSEDATION Folic Acid (Folic Acid) 1 mg PO DAILY [facility] Haloperidol Lactate (Haldol Inj) 1 mg IV.PUSH Q15M PRN PRN Reason: for severe agitation Hydroxyzine HCl (Atarax) 50 mg PO Q6H PRN PRN Reason: ANXIETY Last Admin: 03/31/18 01:49 Dose: 50 mg Lorazepam (Ativan) 1 mg PO Q4H PRN PRN Reason: for CIWA 8-10 Lorazepam (Ativan) 2 mg PO Q2H PRN PRN Reason: for CIWA 11-14 Lorazepam (Ativan Inj) 2 mg IV.PUSH Q2H PRN PRN Reason: for CIWA 11-14 Lorazepam (Ativan Inj) 2 mg IV.PUSH Q1H PRN PRN Reason: for CIWA 15-20 Lorazepam (Ativan Inj) 2 mg IV.PUSH Q15M PRN PRN Reason: for CIWA > 20 Lorazepam (Ativan Inj) 1 mg IV.PUSH Q4H PRN PRN Reason: for CIWA 8-10 Multivitamins (Theragran) 1 tab PO DAILY [facility] Non-Formulary Medication (Metoprolol Succinate [Metoprolol Succinate]) 100 mg PO DAILY [facility] Last Admin: 03/31/18 08:52 Dose: Not Given Thiamine HCl (Vitamin B1) 100 mg PO BID [facility] Ziprasidone (Geodon Inj) 10 mg IM Q12H PRN PRN Reason: SEVERE AGITATION Allergies Allergy/AdvReac Type Severity Reaction Status Date / Time No Known Allergies Allergy Unverified 03/28/18 19:10 Home Medications Medication Instructions Recorded Confirmed Type metoprolol succinate 100 mg PO DAILY 03/28/18 03/28/18 History metoprolol tartrate [Lopressor] 100 mg PO BID 03/28/18 03/28/18 History aripiprazole 10 mg PO DAILY 03/29/18 03/29/18 History hydroxyzine pamoate 50 mg PO HS 03/29/18 03/29/18 History losartan 100 mg PO DAILY 03/29/18 03/29/18 History metoprolol tartrate 50 mg PO DAILY 03/29/18 03/29/18 History Physical Exam Vital signs: Vital Signs 03/30/18 17:18 03/31/18 06:32 Temperature 97.7 F 98.5 F Pulse Rate 92 H 97 H Respiratory Rate 16 16 Blood Pressure 128/75 122/72 Pulse Oximetry 97 99 Intake & Output 03/30/18 03/31/18 03/31/18 18:59 06:59 18:59 Weight 109.2 kg Narrative: This is a middle-aged male, he is tall enough moderate build, he appears to be no acute distress, he appears to be awake, alert, oriented and quite knowledgeable frankly about his thrombocytopenia. He sitting up in bed. - Constitutional no acute distress Comments: Somewhat pale appearing. - Routine HEENT Exam Head: Present: normocephalic. Absent: atraumatic, cushingoid faces Eye: Present: EOMI, PERRL ENT: Present: mucous membranes moist - Routine Neck Exam Absent: supple, full ROM, JVD, lymphadenopathy - Routine Respiratory Exam Present: CTA bilaterally. Absent: accessory muscle use, rales, respiratory distress, rhonchi, stridor, wheezes, crackles - Routine Cardiovascular Exam Present: RRR, S1, S2. Absent: gallop, rubs, S3, S4 - Routine Abdominal Exam Present: soft, organomegaly. Absent: normoactive bowel sounds, tenderness, distended, rebound, guarding, firm, rigid, mass - Routine Skin Exam Present: intact. Absent: cyanosis, erythema, dry, pallor - Routine Neurological Exam Present: alert, oriented X3, CN II-XII intact. Absent: sensory deficit, motor deficit, normal reflexes - Detailed Neurological Exam: Coma Scale Eye Opening: Spontaneous - Routine Psychiatric Exam Comments: He appears to me to have a normal affect, he seems to focus quite a bit on his mother and family as the primary cause of his difficulties in life. I am unable to assess his psychiatric status more, to me he answers my questions perfectly appropriately and perhaps with more insight than most of my patients do. Assessment and Plan - Plan Mr. Hu is a 57-year-old man with a history of heavy alcohol consumption, he has a psychiatric history as well with a reported history of bipolar disorder and schizophrenia. He was hospitalized to the psychiatric inpatient unit for management of symptoms which included aggressive behavior and reported/ assessed psychosis. The hematology service is been asked to see him for further evaluation of thrombocytopenia. This man has chronic thrombocytopenia and has chronic splenomegaly secondary to steatohepatitis (he has been a very heavy drinker in the past). Blood work from 2016 indicates thrombus cytopenia with a platelet count of 66,000. He underwent ultrasound abdomen at that time and was found to have splenomegaly with the spleen measuring 20 cm. Repeat ultrasound of the abdomen reveals steatohepatitis and splenomegaly with the spleen measuring 21 cm. The patient is pancytopenic, likely etiology of the pancytopenia splenic sequestration due to the splenomegaly. I do not suspect a primary hematologic disorder at this time however a peripheral smear has been requested and will be reviewed. If there are any findings to suggest myelodysplasia a bone marrow biopsy will be considered. Recommendations: 1. Pancytopenia: Request peripheral smear, I will review the smear personally to rule out dysplastic or dysmorphic findings. 2. Splenomegaly: Related to steatohepatitis, typically we recommend supportive care and monitoring. I would advise obtaining repeat CBC in the upcoming days. I suspect the significant drop in platelet counts over the course of his hospitalization is likely due to initial hemoconcentration at the time of presentation. Hemoconcentration at the time of presentation would explain why his white cell count, hemoglobin, hematocrit and platelet counts have declined proportionately over the first 2 days or so hospitalization. I would assess his current blood counts to be more reflective of his baseline.
[2018-03-31] MEDS: ARIPiprazole 5 MG Tablet PO SCH (20:59)
[2018-04-01 08:07] LABS: Baso % (Auto) 1.3 % (0.0-2.0); Eos # (Auto) 0.1 th/mm3 (0.0-0.4); Hematocrit 34.7 % (39.0-51.0); Hemoglobin 11.9 gm/dL (13.0-17.0); Lymph # (Auto) 1.1 th/mm3 (1.0-4.8); Mean Corpuscular HGB Conc 34.4 % (32.0-36.0); Mean Corpuscular Hemoglobin 33.4 pg (27.0-34.0); Mean Corpuscular Volume 97.1 fL (80.0-100.0); Mean Platelet Volume 10.5 fL (7.0-11.0); Mono # (Auto) 0.4 th/mm3 (0.0-0.9); Mono % (Auto) 11.8 % (0.0-8.0); Neut # (Auto) 1.6 th/mm3 (1.8-7.7); Neut % (Auto) 48.9 % (16.0-70.0); Platelet Count 41 th/mm3 (150-450); Red Blood Count 3.57 mil/mm3 (4.50-5.90); Red Cell Distribution Width 16.1 % (11.6-17.2); White Blood Count 3.2 th/mm3 (4.0-11.0)
[2018-04-01 08:14] LABS: INR 1.3 Ratio; Prothrombin Time 13.4 sec (9.8-11.6)
[2018-04-01 08:31] LABS: Alanine Aminotransferase 51 U/L (12-78); Albumin 2.7 g/dL (3.4-5.0); Anion Gap 8 meq/L (5-15); Aspartate Aminotransferase 67 U/L (15-37); Blood Urea Nitrogen 13 mg/dL (7-18); Calcium 8.4 mg/dL (8.5-10.1); Chloride 106 meq/L (98-107); Glomerular Filtration Rate Greater Than 89 mL/min (>89); Glucose,Random 102 mg/dL (74-106); Potassium 3.9 meq/L (3.5-5.1); Sodium 139 meq/L (136-145)
[2018-04-01 08:32] LABS: Alkaline Phosphatase 258 U/L (45-117); Total Protein 6.7 g/dL (6.4-8.2)
[2018-04-01 08:54] LABS: Platelet Morphology Normal (Normal)
[2018-04-01] MEDS: Folic Acid 1 MG Tablet PO SCH (09:42)
[2018-04-01] MEDS: Non-Formulary Drug (Metoprolol Succinate [Metoprolol Succinate] 100 MG) PO SCH (09:44)
--- NOTE | 2018-04-01 14:37 | P.PNGI ---
Subjective Interval history: Pt seen in day room. No complaints at this time. He states he really wants the umbilical hernia repair and has questions regarding when this can be done. <Corrie Celaya - Last Filed: 04/01/18 14:37> Physical Exam Vital signs: Vital Signs 04/01/18 05:37 Temperature 97.8 F Respiratory Rate 16 Blood Pressure 132/76 Pulse Oximetry 98 Intake & Output 03/31/18 04/01/18 04/01/18 18:59 06:59 18:59 Intake Total 480 / 480 Balance 480 / 480 Intake: Oral 480 / 480 - Constitutional no acute distress - Routine HEENT Exam Head: Present: normocephalic, atraumatic - Routine Respiratory Exam Absent: accessory muscle use - Routine Cardiovascular Exam Present: RRR - Routine Abdominal Exam Present: soft, normoactive bowel sounds. Absent: tenderness, distended - Routine Skin Exam Present: dry, warm - Routine Neurological Exam Present: alert, oriented X3 <Corrie Celaya - Last Filed: 04/01/18 14:37> Vital signs: Vital Signs 04/01/18 05:37 Temperature 97.8 F Respiratory Rate 16 Blood Pressure 132/76 Pulse Oximetry 98 Intake & Output 03/31/18 04/01/18 04/01/18 18:59 06:59 18:59 Intake Total 480 / 480 Balance 480 / 480 Intake: Oral 480 / 480 <Ronni Villanueva - Last Filed: 04/01/18 17:15> Results - Labs CBC & Chem 7: 04/01/18 07:16 04/01/18 07:16 Laboratory Results - last 24 hr 03/31/18 03/31/18 04/01/18 14:38 16:08 07:16 WBC 3.2 L RBC 3.57 L Hgb 11.9 L Hct 34.7 L MCV 97.1 MCH 33.4 MCHC 34.4 RDW 16.1 Plt Count 41 L MPV 10.5 Prelim Diff (Auto) Slide review pending Neut % (Auto) 48.9 Lymph % (Auto) 35.0 Tal[place]ferro % (Auto) 11.8 H Eos % (Auto) 3.0 Baso % (Auto) 1.3 Neut # (Auto) 1.6 L Lymph # (Auto) 1.1 [place]ro # (Auto) 0.4 Eos # (Auto) 0.1 Baso # (Auto) 0.0 WBC Differential . Diff Scan Auto diff confirmed Differential Comment . Platelet Estimate Low L Platelet Morphology Normal PT INR Sodium Potassium Chloride Carbon Dioxide Anion Gap BUN Creatinine Estimated GFR Random Glucose Calcium Total Bilirubin AST ALT Alkaline Phosphatase Ammonia 32 Total Protein Albumin Tumor Marker AFP 5.3 Acetaminophen Less than 2.0 L 04/01/18 04/01/18 07:16 07:16 WBC RBC Hgb Hct MCV MCH MCHC RDW Plt Count MPV Prelim Diff (Auto) Neut % (Auto) Lymph % (Auto) [place]ferro % (Auto) Eos % (Auto) Baso % (Auto) Neut # (Auto) Lymph # (Auto) [place] # (Auto) Eos # (Auto) Baso # (Auto) WBC Differential Diff Scan Differential Comment Platelet Estimate Platelet Morphology PT 13.4 H INR 1.3 Sodium 139 Potassium 3.9 Chloride 106 Carbon Dioxide 25.0 Anion Gap 8 BUN 13 Creatinine 0.68 Estimated GFR Greater than 89 Random Glucose 102 Calcium 8.4 L Total Bilirubin 2.0 H AST 67 H ALT 51 Alkaline Phosphatase 258 H Ammonia Total Protein 6.7 Albumin 2.7 L Tumor Marker AFP Acetaminophen - Imaging Impressions Liver Ultrasound 03/31/18 00:00 CONCLUSION: 1. There continues to be some increased echogenicity throughout the liver characteristic for fatty infiltration. 2. There continues to be evidence of splenomegaly. 3. No new or significant changes compared back to 2016. <Corrie Celaya - Last Filed: 04/01/18 14:37> - Labs CBC & Chem 7: 04/01/18 07:16 04/01/18 07:16 Laboratory Results - last 24 hr 03/31/18 03/31/18 04/01/18 16:08 16:08 07:16 WBC 3.2 L RBC 3.57 L Hgb 11.9 L Hct 34.7 L MCV 97.1 MCH 33.4 MCHC 34.4 RDW 16.1 Plt Count 41 L MPV 10.5 Prelim Diff (Auto) Slide review pending Neut % (Auto) 48.9 Lymph % (Auto) 35.0 Tal[place]ferro % (Auto) 11.8 H Eos % (Auto) 3.0 Baso % (Auto) 1.3 Neut # (Auto) 1.6 L Lymph # (Auto) 1.1 [place]ferro # (Auto) 0.4 Eos # (Auto) 0.1 Baso # (Auto) 0.0 WBC Differential . Diff Scan Auto diff confirmed Differential Comment . Platelet Estimate Low L Platelet Morphology Normal PT INR Sodium Potassium Chloride Carbon Dioxide Anion Gap BUN Creatinine Estimated GFR Random Glucose Calcium Total Bilirubin AST ALT Alkaline Phosphatase Total Protein Albumin Tumor Marker AFP 5.3 Acetaminophen Less than 2.0 L LANA Screen Neg 04/01/18 04/01/18 07:16 07:16 WBC RBC Hgb Hct MCV MCH MCHC RDW Plt Count MPV Prelim Diff (Auto) Neut % (Auto) Lymph % (Auto) Taliaferro % (Auto) Eos % (Auto) Baso % (Auto) Neut # (Auto) Lymph # (Auto) [place]ro # (Auto) Eos # (Auto) Baso # (Auto) WBC Differential Diff Scan Differential Comment Platelet Estimate Platelet Morphology PT 13.4 H INR 1.3 Sodium 139 Potassium 3.9 Chloride 106 Carbon Dioxide 25.0 Anion Gap 8 BUN 13 Creatinine 0.68 Estimated GFR Greater than 89 Random Glucose 102 Calcium 8.4 L Total Bilirubin 2.0 H AST 67 H ALT 51 Alkaline Phosphatase 258 H Total Protein 6.7 Albumin 2.7 L Tumor Marker AFP Acetaminophen LANA Screen <Ronni Villanueva - Last Filed: 04/01/18 17:15> Assessment and Plan - Plan Assessment: - Elevated LFTs in setting of ETOH abuse and known history of cirrhosis Discriminant function-11 AST-67 ALT-45 T bili-2.5 Alk phos-231 Coagulopathy, thrombocytopenia, and hypoalbuminemia Pt reports heavy ETOH, drinks up to a gallon and a half of vodka over a two day period. Denies history of illicit drug use, tattoos, high risk sexual behaviors. Hepatitis profile negative. Of note, pt reports taking multiple [employer] brand sleep tabs at night, unsure if there is any Tylenol in this. Denies any OTC herbs, supplements, and medications Liver US (03/31) There continues to be some increased echogenicity throughout the liver characteristic for fatty infiltration. There continues to be evidence of splenomegaly. No new or significant changes compared back to 2016. (04/01) No changes overnight. Liver work up pending. Seen by hematology. US liver as noted above Plan: Liver work up to rule out other etiology HFE- Iron sat 93% Avoid hepatotoxins Further recommendations to follow Pt has been seen and examined by myself and Dr. Villanueva and this note is written on his behalf <Corrie Celaya - Last Filed: 04/01/18 14:37> - Plan Seen and examined with MARITZA, liver self in progress. Hepatitis panel -ve. The exam, history, and the medical decision-making described in the above note were completed with the assistance of the mid-level provider. I reviewed and agree with the findings presented. I attest that I had a [id number] encounter with the patient on the same day, and personally performed and documented my assessment and findings in the medical record. <Ronni Villanueva - Last Filed: 04/01/18 17:15>
--- NOTE | 2018-04-01 14:47 | P.PNPSY ---
Subjective Remarks: Reviewed electronic medical records and discussed case with staff. Follow-up was conducted in patient's room. He was found lying in bed. He continues to be fixated on placement post discharge. Staff report he has been compliant with treatment. He was visited by an assisted living facility ambulatory services representative today however, he declined going to the facility stating that it was too expensive. He claims that after discharge he would like to leave the [facility]. He reports that he feels good. States that he slept well and has a good appetite. Still admits to being depressed but he says is in the context of "where I am going to stay". He has no complaints today. Mental Status Examination Appearance: Disheveled Consciousness: Alert Orientation: x4 Motor Activity: Normal gait Speech: Unremarkable Language: Adequate Fund of Knowledge: Adequate Attention and Concentration: Adequate Memory: Unremarkable Mood: Other ("frustrated") Affect: Blunt Thought Process & Associations: Circumstantial, Tangential Thought Content: Other (suspicious of family) Hallucination Type: Auditory (denies) Delusion Type: Paranoid Suicidal Ideation: No Suicidal Plan: No Suicidal Intention: No Homicidal Ideation: No Homicidal Plan: No Homicidal Intention: No Insight: Poor Judgment: Impulsive Assessment and Plan - Assessment (1) Bipolar disorder Code(s): F31.9 - Bipolar disorder, unspecified Status: Acute - Plan Plan: At this time patient meets criteria for involuntary psychiatric hospitalization of the Ortiz act thus I will cosign second opinion petition supporting Ortiz act Justification for Continued Inpatient Stay: Moving this patient to a less restrictive environment would likely result in decompensation.
--- NOTE | 2018-04-01 17:07 | P.PN ---
Subjective Interval history: Follow up on patient with pancytopenia, hx of EtOH abuse and cirrhosis. Patient seen and examined. Patient denies any acute medical complaints. He denies any nausea, vomiting or abdominal pain. He denies any active bleeding. He denies any chest pain or shortness of breath. He mainly wants to talk about his relationship with his mother. Physical Exam Vital signs: Vital Signs 04/01/18 05:37 Temperature 97.8 F Respiratory Rate 16 Blood Pressure 132/76 Pulse Oximetry 98 Intake & Output 03/31/18 04/01/18 04/01/18 18:59 06:59 18:59 Intake Total 480 / 480 Balance 480 / 480 Intake: Oral 480 / 480 Narrative: GENERAL: Well-developed well-nourished male, not in any acute distress. Awake and alert. Sitting in dayroom. SKIN: Warm and dry. Swallow appearance of skin. HEAD: Atraumatic. Normocephalic. EYES: Pupils equal and round. +slight bilateral sclera icterus. No injection or drainage. ENT: No nasal bleeding or discharge. Mucous membranes pink and moist. NECK: Trachea midline. CARDIOVASCULAR: Regular rate and rhythm. RESPIRATORY: No accessory muscle use. Clear to auscultation. Breath sounds equal bilaterally. GASTROINTESTINAL: Abdomen soft, non-tender, nondistended. MUSCULOSKELETAL: Extremities without clubbing, cyanosis, or edema. No obvious deformities. NEUROLOGICAL: Awake and alert. No obvious cranial nerve deficits. Motor grossly within normal limits. Able to move all extremities spontaneously normal speech. PSYCHIATRIC: Calm and cooperative. Judgment and insight poor. Results - Labs CBC & Chem 7: 04/01/18 07:16 04/01/18 07:16 Laboratory Results - last 24 hr 03/31/18 03/31/18 04/01/18 16:08 16:08 07:16 WBC 3.2 L RBC 3.57 L Hgb 11.9 L Hct 34.7 L MCV 97.1 MCH 33.4 MCHC 34.4 RDW 16.1 Plt Count 41 L MPV 10.5 Prelim Diff (Auto) Slide review pending Neut % (Auto) 48.9 Lymph % (Auto) 35.0 Sioux % (Auto) 11.8 H Eos % (Auto) 3.0 Baso % (Auto) 1.3 Neut # (Auto) 1.6 L Lymph # (Auto) 1.1 [place] # (Auto) 0.4 Eos # (Auto) 0.1 Baso # (Auto) 0.0 WBC Differential . Diff Scan Auto diff confirmed Differential Comment . Platelet Estimate Low L Platelet Morphology Normal PT INR Sodium Potassium Chloride Carbon Dioxide Anion Gap BUN Creatinine Estimated GFR Random Glucose Calcium Total Bilirubin AST ALT Alkaline Phosphatase Total Protein Albumin Tumor Marker AFP 5.3 Acetaminophen Less than 2.0 L LANA Screen Neg 04/01/18 04/01/18 07:16 07:16 WBC RBC Hgb Hct MCV MCH MCHC RDW Plt Count MPV Prelim Diff (Auto) Neut % (Auto) Lymph % (Auto) [place]oux % (Auto) Eos % (Auto) Baso % (Auto) Neut # (Auto) Lymph # (Auto) [place] # (Auto) Eos # (Auto) Baso # (Auto) WBC Differential Diff Scan Differential Comment Platelet Estimate Platelet Morphology PT 13.4 H INR 1.3 Sodium 139 Potassium 3.9 Chloride 106 Carbon Dioxide 25.0 Anion Gap 8 BUN 13 Creatinine 0.68 Estimated GFR Greater than 89 Random Glucose 102 Calcium 8.4 L Total Bilirubin 2.0 H AST 67 H ALT 51 Alkaline Phosphatase 258 H Total Protein 6.7 Albumin 2.7 L Tumor Marker AFP Acetaminophen LANA Screen - Imaging ITS Impressions Liver Ultrasound 03/31/18 00:00 CONCLUSION: 1. There continues to be some increased echogenicity throughout the liver characteristic for fatty infiltration. 2. There continues to be evidence of splenomegaly. 3. No new or significant changes compared back to 2016. Assessment and Plan - Plan 57-year-old male with past medical history significant for schizophrenia, bipolar disorder, alcohol use disorder, personality disorder admitted under Ortiz act for visual hallucinations, aggressive behavior, poor sleep and not eating. Hospitalist services have been consulted to assist with medical management. Schizophrenia Bipolar disorder Personality disorder Acute psychosis -Management per psychiatric team Pancytopenia Platelet count dropping from 91 to 38 US +splenomegaly and steatohepatitis -Hematology following, appreciate assistance. Likely pancytopenia secondary to sequestration. Heme to review peripheral smear. Drop in platelets during this hospitalization likely due to hemoconcentration. Hyperbilirubinemia, improving Transaminitis Elevated alk phos Hx of alcohol abuse and cirrhosis Hep profile neg -LFTs trending down -GI following, appreciate assistance. Liver work up in progress. ?HFE with iron sat of 93%. -avoid hepatotoxic agents -trend LFTs as indicated Alcohol use disorder -[facility] protocol -Thiamine/folate/multivitamin daily -Seizure precautions -Discussed complete alcohol cessation Hypertension ?CAD, hx of DC x 3 patient has no cardiac complaints at this time -Patient is currently normotensive -Continue patient on home dose of metoprolol DVT prophylaxis -Patient is ambulatory Patient appears stable from hospitalist standpoint. [facility] will sign off. Please reconsult if needed. Code Status: FULL Discussed Condition With: patient, nursing staff, GI service
[2018-04-01] MEDS: ARIPiprazole 5 MG Tablet PO SCH (21:53)
[2018-04-02] MEDS: Non-Formulary Drug (Metoprolol Succinate [Metoprolol Succinate] 100 MG) PO SCH (09:00)
[2018-04-02] MEDS: Folic Acid 1 MG Tablet PO SCH (09:00)
--- NOTE | 2018-04-02 12:29 | P.PNPSY ---
Subjective Remarks: Patient was seen and case discussed with nursing. Patient has poor insight into his admission and mental health. Thought processes bizarre. He is perseverative on discharge. He does deny auditory or visual hallucinations. Denies suicidal or homicidal ideation intent. Told nursing this morning he was hearing voices but later denied it for my interview Mental Status Examination Appearance: Disheveled Consciousness: Alert Orientation: x4 Motor Activity: Normal gait Speech: Unremarkable Language: Adequate Fund of Knowledge: Adequate Attention and Concentration: Adequate Memory: Unremarkable Mood: Other ("frustrated") Affect: Blunt Thought Process & Associations: Disorganized Thought Content: Other (suspicious of family) Hallucination Type: Auditory (This morning) Delusion Type: Paranoid Suicidal Ideation: No Suicidal Plan: No Suicidal Intention: No Homicidal Ideation: No Homicidal Plan: No Homicidal Intention: No Insight: Poor Judgment: Impulsive Assessment and Plan - Assessment (1) Bipolar disorder Code(s): F31.9 - Bipolar disorder, unspecified Status: Acute - Plan Plan: Continue current treatment plan Justification for Continued Inpatient Stay: Patient would decompensate in a less restrictive setting
[2018-04-02 15:02] LABS: Alpha 1 Antitrypsin 150 mg/dL (100 - 190); Smooth Muscle Total Auto Abs Negative (Negative)
[2018-04-02] MEDS: ARIPiprazole 5 MG Tablet PO SCH (20:27)
[2018-04-03] MEDS: Folic Acid 1 MG Tablet PO SCH (08:57)
--- NOTE | 2018-04-03 10:00 | P.PNPSY ---
Subjective Remarks: Patient was seen and case discussed with nursing. Patient continues to improve. He is lucid organized and goal-directed. Continues to deny any auditory visual hallucinations. At 3 and is discharged focused. His behaving well on the unit. Compliant with medications Mental Status Examination Appearance: Disheveled Consciousness: Alert Orientation: x4 Motor Activity: Normal gait Speech: Unremarkable Language: Adequate Fund of Knowledge: Adequate Attention and Concentration: Adequate Memory: Unremarkable Mood: Appropriate Affect: Appropriate Thought Process & Associations: Intact Thought Content: Other (suspicious of family) Hallucination Type: None Delusion Type: None Suicidal Ideation: No Suicidal Plan: No Suicidal Intention: No Homicidal Ideation: No Homicidal Plan: No Homicidal Intention: No Insight: Fair Judgment: Impulsive Assessment and Plan - Assessment (1) Bipolar disorder Code(s): F31.9 - Bipolar disorder, unspecified Status: Acute - Plan Plan: Continue current treatment plan Justification for Continued Inpatient Stay: Patient would decompensate in a less restrictive setting
[2018-04-03 15:50] LABS: Ceruloplasmin 16 mg/dL (18-36)
[2018-04-03] MEDS: ARIPiprazole 5 MG Tablet PO SCH (20:53)
[2018-04-04] MEDS: Folic Acid 1 MG Tablet PO SCH (09:13)
[2018-04-04 09:17] VITALS: BP 126/70; PULSE 77
[2018-04-04 09:42] VITALS: RESP 16; TEMP 98.7; O2SAT 99
--- NOTE | 2018-04-04 14:04 | P.DSPSY ---
Psychiatry Discharge Summary Inpatient Psychiatric care?: Yes Advance Directives: No Mental Health Advance Directive: No Health Care Proxy: No - Admission Admission Date: March 29, 2018 12:57 - Admission Diagnosis (1) Bipolar disorder Code(s): F31.9 - Bipolar disorder, unspecified Brief History: Patient is a 57-year-old man, single, no children, domiciled with mother, unemployed on SSD, with a past psychiatric history of bipolar disorder, alcohol use disorder, cluster B personality traits, multiple psychiatric admissions (last time at [facility] 2015), 2 previous suicide attempts (remote), who was brought under Ortiz act for psychiatric evaluation due to patient endorsing visual hallucinations, poor sleep and not eating and reported aggressive behavior toward mother which patient was admitted to the inpatient psychiatry for further evaluation and management. As per chart [employer] act states patient here for evaluation psychiatrically, history of bipolar schizophrenia, not eating, not sleeping for 4 days, having visual hallucinations of people. While patient was in the ED patient's brother had called to express concern for patient's violent behavior with the mother and having stopped medications months ago. He was also noted the patient reported feeling depressed and was noted to be responding to internal stimuli along with having paranoid ideations toward family and police. He also mentioned having pot $4000 worth of jewelry and have returned it to go to [facility]. Patient was found heavily on unit noted B, cooperative. Patient states that he is here in the hospital because of an argument he had with his mother which she states having called the police but having mother provide testimony had brought patient to the hospital. He states that he had been living with her and had been planning to leave the home but that her mother did not allow him to which prompted another argument. He states wanting to leave to [place] (in the ED reported wanting to go to [place]). He states that he wanted to start medications "because I couldn't take watching mother " referring to his mother having been diagnosed with cancer. He mentions recently having been prescribed medications at [facility] bu did not continue with treatment. He mentions that his mother was "seeing people" and that she had reported to police that he was seeing people. He states that he had called police "because my mom didn't let me leave". He reports two nights of sleeping "great" as he states is not at home and worrying about his mother. He reports decreased appetite, and energy but no change in concentration, mood is "frustrated", denies feeling depressed, denies any perceptual disturbances but mentions, "i always have conversation with myself but I don't hear voices". He denies SI or HI. Patient provides different events which are incongruent with prior reports. Patient disorganized at times, tangential, minimizing recent behavior. Past psychiatric history: Prior psychiatric diagnoses depression and bipolar disorder as per patient, alcohol use disorder, cluster B personality traits, multiple psychiatric admissions last time being 2016 here at [facility], 2 remote previous suicide attempts, has outpatient follow-up at [facility], previous medication trials include lithium, Paxil, Abilify. Substance use history: Denies has history of alcohol use which she states stopped 2 years ago but restarted 1 month ago with drinking 1/5 of vodka once per week last time being 2 weeks ago. Patient denies use of any other drugs. Past medical history: Hypertension, reports 3 previous MIs, primary care doctor is Dr. Jacques Allergies: NKDA as per chart but states that he is allergic to some type of anesthetic unspecified Social history: Domiciled with mother, single, no children, unemployed on SSD, no history, legal history of DUIs, no asked to firearms. Patient provides collateral contact to be his mother (Charley) at [phone]. Tobacco Use In Past 30 Days: No How Often Do You Have a Drink Containing Alcohol: Unable to Obtain (patient is vague with the details of his alcohol consumption) Hospital Course: Patient was admitted to a locked psychiatric unit. All safety precautions were observed during his stay. He was followed daily by a psychiatric provider. He was restarted on his Abilify at 5 mg by mouth per day. He reports that he feels much better and has been able to sleep over the past 4 days. There is been a noted decrease in his symptoms by staff as well as his provider. Additionally, he was detoxed off the alcohol as a consequence of his stay at this facility. Upon examination today, he reports that he feels "excellent". He states he has a recovery home to go to and names the [facility]. This is an extremely structured sober living facility, which should prove very beneficial. He states that he spoke with [facility], [id number] and they have a room for him at this time. He reports that he slept well for the past 4 days and that he has had a good appetite. He denies suicidal or homicidal ideation as well as auditory or visual hallucinations. He does not appear to be internally stimulated nor is there any indication of thought blocking. There is no evidence of psychosis or [place] at this time. Patient's interactions throughout the interview is appropriate. I will discharge him on his previous dose of Abilify as he has been on the 5 mg dose throughout his stay. At this time, I believe he has reached maximum therapeutic benefit from this inpatient admission and he does not appear to be an eminent danger to himself or anyone else. I presented this patient to Dr. Cline who concurs with my opinion and is removing the Ortiz act as this patient no longer meets that criteria. He has been instructed to return should his condition worsen. - Discharge Discharge Date: 04/04/18 - Discharge Diagnosis (1) Bipolar disorder Code(s): F31.9 - Bipolar disorder, unspecified Status: Acute Discharge Disposition: [facility]idential [facility] - Discharge Instructions Discharge Diet: Regular Diet Activities You Can Perform: Regular- No Restrictions - Discharge Time > 30 minutes Mental Status Examination Appearance: Disheveled Consciousness: Alert Orientation: x4 Motor Activity: Normal gait Speech: Unremarkable Language: Adequate Fund of Knowledge: Adequate Attention and Concentration: Adequate Memory: Unremarkable Mood: Appropriate Affect: Appropriate Thought Process & Associations: Intact Thought Content: Other (suspicious of family) Hallucination Type: None Delusion Type: None Suicidal Ideation: No Suicidal Plan: No Suicidal Intention: No Homicidal Ideation: No Homicidal Plan: No Homicidal Intention: No Insight: Fair Judgment: Impulsive Discharge/Advance Care Plan - Results Vital Signs: Last Vital Signs Temp 98.7 F 04/04/18 06:00 Pulse 77 04/04/18 09:17 Resp 16 04/04/18 06:00 BP 126/70 04/04/18 09:17 Pulse Ox 99 04/04/18 06:00 Lab Results: Abnormal Lab Results 03/31/18 10:20 Ceruloplasmin 16 L Laboratory Results Hemoglobin A1c 5.2 % (4.3-6.0) 03/30/18 08:01 Triglycerides 183 mg/dL (42-150) H 03/30/18 08:01 Cholesterol 173 mg/dL (120-200) 08/29/18 08:01 LDL Cholesterol, Calc 89 mg/dL (0-99) 03/30/18 08:01 HDL Cholesterol 47.7 mg/dL (40.0-60.0) 03/30/18 08:01 TSH 1.770 uIU/mL (0.358-3.740) 03/28/18 18:23 Urine Culture Comments Culture not ind 03/29/18 07:14 Summary of Procedures: None Imaging: ITS Impressions Liver Ultrasound 03/31/18 00:00 CONCLUSION: 1. There continues to be some increased echogenicity throughout the liver characteristic for fatty infiltration. 2. There continues to be evidence of splenomegaly. 3. No new or significant changes compared back to 2016. Pending Results: None - Medications Number of antipsychotic medications at discharge: 1 - Discharge Care Plan Goals to Promote Your Health: * To prevent worsening of your condition and complications * To maintain your health at the optimal level Directions to Meet Your Goals: Take your medications as prescribed Follow your dietary instruction Follow activity as directed Keep your appointments as scheduled Take your immunizations and boosters as scheduled If your symptoms worsen call your PCP, if no PCP go to Urgent Care Center or Emergency Room For 22/02 questions related to your inpatient stay or results of tests pending at discharge, please contact MARITZA Hugo at Smoking is Dangerous to Your Health. Avoid second hand smoking
--- NOTE | 2018-04-04 15:47 | P.PNGI ---
Subjective Interval history: Patient is sitting in the brachial area tentatively planning for discharge today Current hemoglobin 11.9, WBC count 3.2 ,some of the liver workup labs are pending Denies any nausea vomiting and no acute abdominal pain <BoboLindy - Last Filed: 04/04/18 15:39> Physical Exam Vital signs: Vital Signs 04/03/18 17:43 04/04/18 06:00 04/04/18 09:17 Temperature 98.6 F 98.7 F Pulse Rate 81 79 77 Respiratory Rate 18 16 Blood Pressure 123/65 104/59 L 126/70 Pulse Oximetry 100 99 - Constitutional no acute distress, obese - Routine HEENT Exam Head: Present: normocephalic ENT: Present: mucous membranes moist - Routine Abdominal Exam Present: soft ([place], no acute abdominal pain) <RudyardLindy - Last Filed: 04/04/18 15:39> Vital signs: Vital Signs 04/04/18 06:00 04/04/18 09:17 Temperature 98.7 F Pulse Rate 79 77 Respiratory Rate 16 Blood Pressure 104/59 L 126/70 Pulse Oximetry 99 <Morgan Benitez - Last Filed: 04/04/18 23:25> Results - Labs CBC & Chem 7: 04/01/18 07:16 04/01/18 07:16 Laboratory Results - last 24 hr 03/31/18 10:20 Ceruloplasmin 16 L <BoboLindy Ornelas - Last Filed: 04/04/18 15:39> - Labs CBC & Chem 7: 04/01/18 07:16 04/01/18 07:16 <Morgan Benitez - Last Filed: 04/04/18 23:25> Assessment and Plan - Plan 04/04/2018 ,elevated liver enzymes and transaminitis, liver workup labs in process currently folate 738, hepatitis panel nonreactive, LANA negative, AMS a negative, M2 IgG antibody labs pending, hemochromatosis labs pending, ammonia level 32, lipase 189, AFP 5.3, ceruloplasmin 16, alpha-1 antitrypsin 150 Hemoglobin 11.9 WBC count 3.2, platelet count is now decreased to 41 thrombocytopenia unspecified hemochromatosis labs are pending. Thrombocytopenia, unspecified Patient is currently pending discharge from the psychiatric admission and was encouraged to follow-up with advanced GI on [place] and [place]. Current liver workup labs are still pending, including hemochromatosis. Questionable hepatocellular disease, may need follow-up with hematology. Patient states he was initially the pending surgery, but surgery was postponed secondary to his platelet count. Only denies any symptoms of nausea vomiting or abdominal pain. Pending discharge today patient can follow-up with GI on an outpatient basis. Outpatient medications discussed with patient would include vitamins with iron supplement. Patient was seen per myself and Dr. Benitez, note was written on his behalf <Lindy Broussard - Last Filed: 04/04/18 15:39> - Attending Attestation Above assessment and plan. Will sign off for now and to be followed as out patient. <Morgan Benitez - Last Filed: 04/04/18 23:25>
[2018-04-08 20:36] LABS: Specimen HFE WB Whole Blood
== END 2018-04-04 15:50 | disposition home or self-care (01) ==
LOC: NEDAMB 18:10 → NEDA 03-29 12:57 → H260 03-29 14:31
PROVIDERS: ADMIT Student in an Organized Health Care Education/Training Program; ATTEND Student in an Organized Health Care Education/Training Program